=== PATIENT | female | born 1975 | race Caucasian/White ===

== ENCOUNTER 2020-08-23 13:58 | Outpatient (REF) | payer OTHER, SELFPAY ==
[2020-08-23 14:35] LABS: MANUAL DIFF FLAG NO
[2020-08-23 14:38] LABS: Basophils Percent Auto 0.3 % (0-2); Eosinophils Absolute Auto 0.1 X10*3/uL (0.0-0.4); Eosinophils Percent Auto 1.2 % (0-4); Hemoglobin 13.9 g/dl (12.0-16.0); Imm Gran Abs Auto 0.03 X10*3/uL (0.00-0.03); Imm Gran Pct Auto 0.3 % (0.0-0.4); Lymphocytes Absolute Auto 2.3 X10*3/uL (1.2-4.9); Lymphocytes Percent Auto 24.5 % (20-40); Mean Corpuscular HGB Conc 33.9 g/dl (31.0-35.0); Mean Corpuscular Hemoglobin 29.1 pg (27.0-33.0); Mean Platelet Volume 11.3 fL (9.4-12.3); Monocytes Absolute Auto 0.4 X10*3/uL (0.1-1.2); Monocytes Percent Auto 4.4 % (2-11); Neutrophils Absolute Auto 6.5 X10*3/uL (2.0-8.3); Neutrophils Percent Auto 69.3 % (45-73); Platelet Count 212 X10*3/uL (160-400); Red Blood Count 4.77 X10*6/uL (4.20-5.50); Red Cell Distribution Width 12.4 % (11.0-16.0); White Blood Count 9.4 X10*3/uL (4.8-10.8)
[2020-08-23 14:56] LABS: Alanine Aminotransferase 15 U/L (0-31); Albumin Level 4.7 g/dL (3.5-5.0); Alkaline Phosphatase 121 U/L (39-117); Anion Gap 14 (12-20); Aspartate Amino Transferase 20 U/L (5-31); Bilirubin Total 0.5 mg/dL (0.0-1.0); Blood Urea Nitrogen 13 mg/dL (9-16); C Reactive Protein 0.79 mg/dL (< or = 0.50); Calcium 10.5 mg/dL (8.4-10.2); Carbon Dioxide 29 mmol/L (22-29); Chloride 104 mmol/L (96-108); Estimated Glomerular Filt Rate > 60; Glucose Random 95 mg/dL (60-115); Potassium 4.8 mmol/L (3.3-5.1); Sodium 142 mmol/L (135-145); Total Protein 7.8 g/dL (6.5-8.0)
[2020-08-23 15:17] LABS: Thyroid Stimulating Hormone 1.11 uIU/mL (0.32-4.0)
== END 2020-08-23 13:59 | disposition home or self-care (01) ==
LOC: HO.LAB 13:58
PROVIDERS: PCP Internal Medicine; Visit Provider Internal Medicine
DX: R53.83 Other fatigue (principal); E03.9 Hypothyroidism, unspecified; K21.9 Gastro-esophageal reflux disease without esophagitis
CPT/HCPCS: 36415; 80053; 82306; 84439; 84443; 85025; 86140

== ENCOUNTER → 2020-08-29 15:46 | Outpatient (REF) | payer OTHER, SELFPAY | LOC: HO.SL 15:46 | PROVIDERS: PCP Internal Medicine; Visit Provider Internal Medicine | DX: G47.419 Narcolepsy without cataplexy (principal); R53.83 Other fatigue | CPT/HCPCS: 95806 ==

== ENCOUNTER 2021-07-13 08:51 | Outpatient (REF) | payer OTHER, SELFPAY ==
[2021-07-13 09:12] LABS: MANUAL DIFF FLAG NO
[2021-07-13 10:13] LABS: Basophils Percent Auto 0.5 % (0-2); Eosinophils Absolute Auto 0.1 X10*3/uL (0.0-0.4); Eosinophils Percent Auto 1.1 % (0-4); Hematocrit 41.6 % (37.0-47.0); Hemoglobin 14.4 g/dl (12.0-16.0); Imm Gran Abs Auto 0.03 X10*3/uL (0.00-0.03); Imm Gran Pct Auto 0.4 % (0.0-0.4); Lymphocytes Absolute Auto 1.9 X10*3/uL (1.2-4.9); Lymphocytes Percent Auto 23.5 % (20-40); Mean Corpuscular HGB Conc 34.6 g/dl (31.0-35.0); Mean Corpuscular Hemoglobin 30.3 pg (27.0-33.0); Mean Corpuscular Volume 87.4 fL (80.0-98.0); Mean Platelet Volume 11.5 fL (9.4-12.3); Monocytes Absolute Auto 0.4 X10*3/uL (0.1-1.2); Monocytes Percent Auto 4.7 % (2-11); Neutrophils Absolute Auto 5.6 x10*3/uL (2.0-8.3); Neutrophils Percent Auto 69.8 % (45-73); Platelet Count 222 X10*3/uL (160-400); Red Blood Count 4.76 X10*6/uL (4.20-5.50); Red Cell Distribution Width 12.1 % (11.0-16.0)
[2021-07-13 10:44] LABS: Alanine Aminotransferase 13 U/L (0-31); Albumin Level 4.5 g/dL (3.5-5.0); Alkaline Phosphatase 100 U/L (39-117); Anion Gap 13 (12-20); Aspartate Amino Transferase 15 U/L (5-31); Bilirubin Total 0.6 mg/dL (0.0-1.0); Blood Urea Nitrogen 9 mg/dL (9-16); Calcium 9.8 mg/dL (8.4-10.2); Carbon Dioxide 28 mmol/L (22-29); Chloride 104 mmol/L (96-108); Cholesterol 207 mg/dL; Estimated Glomerular Filt Rate > 60; Glucose Random 90 mg/dL (60-115); HDL Cholesterol 71 mg/dL; LDL Cholesterol Calculated 123 mg/dl; Potassium 4.8 mmol/L (3.3-5.1); Sodium 140 mmol/L (135-145); Total Protein 7.6 g/dL (6.5-8.0); Triglycerides 66 mg/dL
[2021-07-13 11:08] LABS: Free T4 (Free Thyroxine) 1.31 ng/dL (0.71-1.85); Thyroid Stimulating Hormone 1.31 uIU/mL (0.32-4.0)
== END 2021-07-13 08:52 | disposition home or self-care (01) ==
LOC: HO.LAB 08:51
PROVIDERS: PCP Internal Medicine; Visit Provider Internal Medicine
DX: Z00.00 Encounter for general adult medical examination without abnormal findings (principal); E03.9 Hypothyroidism, unspecified
CPT/HCPCS: 36415; 80053; 80061; 84439; 84443; 85025

== ENCOUNTER 2022-10-24 08:15 | Outpatient (AMB) | payer OTHER, SELFPAY ==
--- NOTE | 2022-10-24 09:29 | AM.OFFWIN_ITS ---
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 Patient states that she Dental appointments scheduled but not of the January she has a dental infection pain radiating to jaw. She denies fevers or chills. PFSH Social History Patient Tobacco Use Status: Never used Tobacco Review of Systems Const All systems reviewed & are unremarkable except as noted in HPI and below ENT Reports mouth pain Physical Exam Vital Signs: Last Vital Signs Temp 97.8 F 10/24/22 09:30 Pulse 78 10/24/22 09:30 BP 126/74 10/24/22 09:30 Pulse Ox 98 10/24/22 09:30 BMI result Body Mass Index 30.4 Const General: cooperative, no acute distress and alert HEENT Other: no obvious periapical abscess or gingival abscess. Swelling and tenderness to palpation in the upper right molar region. Assessment & Plan Assessment & Plan (1) Dental infection: Code(s): K04.7 - Periapical abscess without sinus Plan Signs and symptoms consistent with dental infection. Will prescribe Augmentin. Patient has dental appointment scheduled. Discharge instructions, follow up and treatment are discussed with patient in my usual fashion. Alternatives in treatment are also discussed. The patient will return for worsening symptoms or as needed. Advised that any labs/imaging ordered will be followed up on and contact made if further treatment needed. Counseled that patient's condition may require further evaluation and/or treatment. Symptoms of concern for worsening disorder discussed in detail in my customary manner. Patient does verbalize understanding of the plan, there are no apparent barriers to communication. The patient is given the opportunity to ask questions and have them answered to his/her satisfaction Medications: New amoxicillin-pot clavulanate 875-125 mg 1 tab PO BID 20 tabs 0RF 10 days Coding Level of Care Code Est Pt Level 3 (31615) Diagnoses Dental infection K04.7
[2022-10-24 09:30] VITALS: BP 126/74; PULSE 78; TEMP 36.6; O2SAT 98; BMI 30.4
== END 2022-10-24 09:52 | disposition home or self-care (01) ==
PROVIDERS: PCP Internal Medicine; Visit Provider Physician Assistant
DX: K04.7 Periapical abscess without sinus (principal)
CPT/HCPCS: 99213

== ENCOUNTER 2023-06-28 08:21 | Outpatient (REF) | payer OTHER, SELFPAY ==
[2023-06-28 08:45] LABS: MANUAL DIFF FLAG NO
[2023-06-28 09:57] LABS: Basophils Percent Auto 0.5 % (0-2); Eosinophils Absolute Auto 1.4 X10*3/uL (0.0-0.4); Eosinophils Percent Auto 17.2 % (0-4); Hematocrit 40.8 % (37.0-47.0); Hemoglobin 14.1 g/dl (12.0-16.0); Imm Gran Abs Auto 0.01 X10*3/uL (0.00-0.03); Imm Gran Pct Auto 0.1 % (0.0-0.4); Lymphocytes Absolute Auto 1.8 X10*3/uL (1.2-4.9); Lymphocytes Percent Auto 22.5 % (20-40); Mean Corpuscular HGB Conc 34.6 g/dl (31.0-35.0); Mean Corpuscular Hemoglobin 30.1 pg (27.0-33.0); Mean Corpuscular Volume 87.2 fL (80.0-98.0); Mean Platelet Volume 11.7 fL (9.4-12.3); Monocytes Absolute Auto 0.4 X10*3/uL (0.1-1.2); Neutrophils Absolute Auto 4.5 x10*3/uL (2.0-8.3); Neutrophils Percent Auto 54.7 % (45-73); Platelet Count 182 X10*3/uL (160-400); Red Blood Count 4.68 X10*6/uL (4.20-5.50); Red Cell Distribution Width 12.6 % (11.0-16.0); White Blood Count 8.2 X10*3/uL (4.8-10.8)
[2023-06-28 10:46] LABS: Alanine Aminotransferase 17 U/L (0-31); Albumin Level 4.4 g/dL (3.5-5.0); Alkaline Phosphatase 130 U/L (39-117); Anion Gap 15 (12-20); Aspartate Amino Transferase 19 U/L (5-31); Bilirubin Total 0.6 mg/dL (0.0-1.0); Blood Urea Nitrogen 12 mg/dL (9-16); Calcium 9.9 mg/dL (8.4-10.2); Carbon Dioxide 26 mmol/L (22-29); Chloride 106 mmol/L (96-108); Cholesterol 174 mg/dL (<200); Estimated Glomerular Filt Rate > 60; Glucose Fasting 88 mg/dL (60-99); HDL Cholesterol 65 mg/dL (>40); LDL Cholesterol Calculated 98 mg/dL (<100); Magnesium 2.3 mg/dL (1.6-2.6); Potassium 4.2 mmol/L (3.3-5.1); Sodium 143 mmol/L (135-145); Total Protein 7.6 g/dL (6.5-8.0); Triglycerides 59 mg/dL (<150)
[2023-06-28 11:02] LABS: Free T4 (Free Thyroxine) 1.07 ng/dL (0.71-1.85); Thyroid Stimulating Hormone 0.46 uIU/mL (0.32-4.0)
== END 2023-06-28 08:22 | disposition home or self-care (01) ==
LOC: HO.LAB 08:21
PROVIDERS: PCP Internal Medicine; Visit Provider Internal Medicine
DX: I10 Essential (primary) hypertension (principal); E03.9 Hypothyroidism, unspecified; R00.2 Palpitations; E78.00 Pure hypercholesterolemia, unspecified
CPT/HCPCS: 36415; 80053; 80061; 83735; 84439; 84443; 85025

== ENCOUNTER 2023-07-29 08:15 | Outpatient (AMB) | payer OTHER, SELFPAY ==
[2023-07-29 08:35] VITALS: BP 140/90; PULSE 85; TEMP 36.2; O2SAT 99; BMI 31.3
--- NOTE | 2023-07-29 08:35 | AM.OFFWIN_ITS ---
Intake Vital Signs 07/29/23 08:35 Height 5 ft 6 in Weight 194 lb BMI 31.3 BP 140/90 H Blood Pressure Location Lt brachial Position Sitting Pulse 85 Pulse Source Pulse Oximeter Temp 97.2 F Temp Source Temporal Artery Scan Pulse Oximetry (%) 99 Oxygen Delivery Method Room Air Intake Visit Reasons: EP sinus pressure, cough, ears Intake Note: pt is here today sinus pressure cough ears started 1 weeks ago Patient Tobacco Use Status: Never used Tobacco Allergies No Known Allergies [NKA] Allergy (Mild, Verified 07/29/23 08:43) NOT APPLICABLE Do you need a note to return to daycare/school/sports/work: No HPI HPI Comments History of Present Illness Details Patient is a 47-year-old female complaining of 10 days of worsening sinus pressure, cough that is sometimes dry and sometimes she does produce sputum. She states her ears are also blocked, the right is worse than the left. She denies any fevers, nausea, vomiting, diarrhea, shortness of breath or trouble breathing. She states she did try taking Mucinex 4 days ago and that seems to be helping a little bit. She states she does not take an allergy pill daily. Patient denies any history of diabetes. [facility] Social History Patient Tobacco Use Status: Never used Tobacco Review of Systems Const All systems reviewed & are unremarkable except as noted in HPI and below Physical Exam Vital Signs: Last Vital Signs Temp 97.2 F 07/29/23 08:35 Pulse 85 07/29/23 08:35 BP 140/90 H 07/29/23 08:35 Pulse Ox 99 07/29/23 08:35 Oxygen Delivery Method Room Air 07/29/23 08:35 BMI result Body Mass Index 31.3 Const General: cooperative, healthy appearing, comfortable and no acute distress Orientation/consciousness: patient oriented x3 Limitations: no limitations HEENT Head: Yes normal to inspection Ears: external ears normal, Abnormal EAC present erythema, edema, EAC tenderness and other (dry skin) and unable to visualize TM bilaterally General nose exam: Normal external nose present, Normal nares present and No nasal discharge present Face and sinus: Yes normal facial exam and Yes sinuses nontender Mouth: Normal oral and palatal mucosa present and moist mucous membranes Throat: Yes tonsils normal, Yes uvula midline and Yes posterior oropharynx abnormal (Erythematous) Eyes General: appearance normal, both eyes and all related structures Neck Neck: Yes normal visual inspection Resp Effort & Inspection: normal respiratory effort, able to speak in complete sentences, Actively coughing, no respiratory distress, not tachypneic, no tripod positioning and no use of accessory muscles Auscultation: clear to auscultation bilaterally Cardio Rate: regular rate Rhythm: regular rhythm Heart sounds: normal S1 and S2 Skin General skin exam: no rashes or lesions noted Neuro General: patient oriented x3 Extrem General: Yes normal to inspection and Yes no clubbing, cyanosis or edema Assessment & Plan Assessment & Plan (1) Otitis externa: Code(s): H60.90 - Unspecified otitis externa, unspecified ear Qualifiers: Otitis externa type: swimmer's ear Chronicity: acute Laterality: bilateral Qualified Code(s): H60.333 - Swimmer's ear, bilateral Plan: Send prescription for polymyxin B eardrops (2) Sinusitis: Code(s): J32.9 - Chronic sinusitis, unspecified Qualifiers: Sinusitis location: maxillary Chronicity: acute Recurrence: non-recurrent Qualified Code(s): J01.00 - Acute maxillary sinusitis, unspecified Plan: Augmentin x5 days as likely bacterial because this is day 10 of her symptoms. Advised to also add a daily allergy pill. Plan see above Medications: New sakkbbld-ftatftgzf-YL 3.5-10,000-1 mg/mL-unit/mL-% 4 drps otic (ears) Q6H 10 days 10 mL 0RF amoxicillin-pot clavulanate 875-125 mg 1 tab PO Q12H 10 tabs 0RF Coding Level of Care Code Est Pt Level 3 (41563) Diagnoses Acute swimmer's ear of both sides H60.333 Otitis externa type: swimmer's ear Chronicity: acute Laterality: bilateral Acute non-recurrent maxillary sinusitis J01.00 Sinusitis location: maxillary Chronicity: acute Recurrence: non-recurrent
== END 2023-07-29 09:14 | disposition home or self-care (01) ==
PROVIDERS: PCP Internal Medicine; Visit Provider Physician Assistant
DX: H60.333 Swimmer's ear, bilateral (principal); J01.00 Acute maxillary sinusitis, unspecified
CPT/HCPCS: 99213

== ENCOUNTER 2023-12-23 08:12 | Outpatient (AMB) | payer OTHER, SELFPAY ==
[2023-12-23 08:24] VITALS: BP 132/90; PULSE 74; TEMP 36.6; O2SAT 98; BMI 31.3
--- NOTE | 2023-12-23 08:24 | MHC.OFFWIV ---
Intake Vital Signs 12/23/23 08:24 Height 5 ft 6 in Weight 194 lb BMI 31.3 BP 132/90 H Blood Pressure Location Rt brachial Position Sitting Pulse 74 Pulse Source Pulse Oximeter Temp 97.8 F Temp Source Oral Pulse Oximetry (%) 98 Intake Visit Reasons: EP fall, bruised/cut on lt leg Intake Note: pt is here for fall on front steps in front of house, cut on leg. happened 3 weekeneds ago Patient Tobacco Use Status: Never used Tobacco Allergies No Known Allergies [NKA] Allergy (Mild, Verified 12/23/23 08:25) NOT APPLICABLE Do you need a note to return to daycare/school/sports/work: Yes HPI HPI Comments History of Present Illness Details Patient is a 48-year-old female complaining of a cut on the front of her left leg. She tells me she fell going down her front cement steps a couple of weeks ago and it does not seem to be healing well. She tells me that it has become painful and red and warm and she is worried that it is infected. She has not been applying anything to it to make it better. She tells me it does not drain any liquid. [facility] Social History Patient Tobacco Use Status: Never used Tobacco Review of Systems Const All systems reviewed & are unremarkable except as noted in HPI and below Physical Exam Vital Signs: Last Vital Signs Temp 97.8 F 12/23/23 08:24 Pulse 74 12/23/23 08:24 BP 132/90 H 12/23/23 08:24 Pulse Ox 98 12/23/23 08:24 BMI result Body Mass Index 31.3 Const General: cooperative, healthy appearing, comfortable, no acute distress and well developed Orientation/consciousness: patient oriented x3 Limitations: no limitations HEENT Head: Yes normal to inspection Neck Neck: Yes normal visual inspection and Yes supple Neuro General: patient oriented x3 Extrem Elbow/forearm/wrist images: 1. 2cm maroon scab with surrounding erythema and warmth, ttp Assessment & Plan Assessment & Plan (1) Cellulitis: Code(s): L03.90 - Cellulitis, unspecified Qualifiers: Site of cellulitis: extremity Site of cellulitis of extremity: lower extremity Laterality: left Qualified Code(s): L03.116 - Cellulitis of left lower limb Plan: Sent antibiotic to pharmacy, recommended applying Aquaphor twice daily until it is healed. Plan See above Medications: New cefuroxime axetil 500 mg PO Q12H 10 tabs 0RF Coding Level of Care Code New Pt Level 3 (38236) Diagnoses Cellulitis of left lower extremity L03.116 Site of cellulitis: extremity Site of cellulitis of extremity: lower extremity Laterality: left
== END 2023-12-23 09:09 | disposition home or self-care (01) ==
PROVIDERS: PCP Internal Medicine; Visit Provider Physician Assistant
DX: L03.116 Cellulitis of left lower limb (principal)

== ENCOUNTER → 2023-12-23 08:12 | Outpatient (BNVA) | payer OTHER, SELFPAY | PROVIDERS: PCP Internal Medicine; Visit Provider Physician Assistant ==

== ENCOUNTER 2024-03-30 11:17 | Outpatient (REF) | payer OTHER, SELFPAY ==
--- OUTSIDE RECORDS SUMMARY | 2024-03-30 14:08 | XMS_ITS | Clinical Summary ---
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 Name Role Phone Robert Cooper MD Primary Care Provider [phone] Surgical History Surgery Date Site/Laterality Comments SECTION 2007, 2010 PROCEDURE: HISTORICAL DELIVERY Medical History Medical History Date Comments Hypothyroid DX:Hypothyroid Family History Medical History Relation Name Comments Asthma Brother Lung cancer Maternal Grandmother smoker 70 Breast cancer Mother age 62 Stroke Mother afib still work ing Alcohol/Drug Paternal Grandfather Allergies Paternal Grandfather Asthma Sister Colon cancer Neg Hx Ovarian cancer Neg Hx Relation Name Status Comments Brother Maternal Grandmother Mother Paternal Grandfather Sister Social History Tobacco Use Types Packs/Day Years Used Date Smoking Tobacco: Never Smokeless Tobacco: Never Alcohol Use Standard Drinks/Week Comments Yes 0 (1 standard drink = 0.6 oz pur e alcohol) Comments Unknown Sex and Gender Information Value Date Recorded Sex Assigned at Not on file Legal Sex Female 10:02 PM EST Gender Identity Not on file Sexual Orientation Not on file Obstetrics History Last Filed Vital Signs Vital Sign Reading Time Taken Comments Blood Pressure 122/84 10/09/2021 9:13 AM EDT Pulse 89 10/09/2021 9:13 AM EDT Temperature - - Respiratory Rate - - Oxygen Saturation - - Inhaled Oxygen Concentration - - Weight 87.1 kg (192 lb) 10/09/2021 9:13 AM EDT Height 167.6 cm (5' 6 ) 10/09/2021 9:13 AM EDT Body Mass Index 30.99 10/09/2021 9:13 AM EDT Plan of Treatment Upcoming Encounters Date Type Department Care Team ([facility] st Contact Info) Description 11/16/2024 4:00 PM EDT Appointment Radiology Department [address] [place] [address] Health Maintenance Due Date Last Done Comments DTaP,Tdap,and Td Vaccines (1 - Tdap) 11/03/1982 Hepatitis B Vaccines (1 of 3 - 19+ 3-dose series) 11/03/1994 Cholesterol Screening (Lipid Panel) 01/27/2022 Colorectal Cancer Screening: Colonoscopy 01/27/2022 Depression Screening 01/27/2022 HIV Screening 01/27/2022 Hepatitis C Screening 01/27/2022 Hypertension/CHF/CAD Annual BMP Blood Test 01/27/2022 Social Influencers of Health Screening 01/27/2022 COVID-19 Vaccine ( season) 2023 Influenza Vaccine (#1) 2023 Cervical Cancer Screening: Pap Smear 04/11/2024 04/11/2021 Breast Cancer Screening 11/03/2025 11/04/19 24, 2023, 10/29/2022, Additional history exists HIB Vaccines Aged Out No longer eligi ble based on patient's age to complete this topic HPV Vaccines Aged Out No longer eligi ble based on patient's age to complete this topic Hepatitis A Vaccines Aged Out No long er eligible based on patient's age to complete this topic IPV Vaccines Aged Out No longer eligi ble based on patient's age to complete this topic MMR Vaccines Aged Out No longer eligi ble based on patient's age to complete this topic Meningococcal ACWY Vaccine Aged Out N o longer eligible based on patient's age to complete this topic Meningococcal B Vacine Aged Out No lo nger eligible based on patient's age to complete this topic Pneumococcal Vaccine: Pediatrics (0 to 5 Years) and At-Risk Patients (6 to 64 Years) Aged Out No longer eligible based on patient's age to complete this topic RSV Immunization Patients Under 20 months Aged Out No longer eligible based on patient's age to complete this topic Varicella Vaccines Aged Out No longer eligible based on patient's age to complete this topic Procedures Procedure Name Priority Date/Time Associated Diagnosis Comments SCREENING MAMMOGRAPHY BI 2-VIEW BREAST INC CAD Routine 2023 2:08 PM EDT Encounter for gynecological examination (general) (routine) without abnormal findings Encounter for screening mammogram for malignant neoplasm of breast PAP SMEAR Routine 04/11/2021 from Last 3 Months or Most Recently Relevant to Health Maintenance Results * SCREENING MAMMOGRAPHY BI 2-VIEW BREAST INC CAD (2023 2:08 PM EDT) Anatomical Region Laterality Modality Radiographic Maddi ging 10/29/2022 1:38 PM EDT Narrative 2023 3:58 PM EDT This is a summary report. The complete report is available in the patient's medical record. If you cannot access the medical record, please contact the sending organization for a detailed fax or copy. Full field digital screening tomosynthesis mammography, reviewed with CAD and compared to previous mammograms of 09/07/2021 and 10/29/2022. The breasts are composed of fatty and fibroglandular tissue. ??No suspicious mass, architectural distortion or suspicious calcifications are identified. IMPRESSION: : No mammographic evidence of malignancy. BIRADS 1-Negative; N. Breast density: The breasts have scattered areas of fibroglandular density. 5 year breast cancer risk assessment 1.8 % Lifetime breast cancer risk assessment 17.8 % Breast cancer risk category Moderate (15% - 20%) Location: [facility], [address] [place] [address], [id number], [phone] Procedure Note Xochilt Todd MD - 01/12/2024 This is a summary report. The complete report is available in thepatient's medical record. If you cannot access the medical record, pleasecontact the sending organization for a detailed fax or copy. Full field digital screening tomosynthesis mammography, reviewed with CADand compared to previous mammograms of 09/07/2021 and 10/29/2022. Thebreasts are composed of fatty and fibroglandular tissue. No suspiciousmass, architectural distortion or suspicious calcifications areidentified. IMPRESSION: : No mammographic evidence of malignancy. BIRADS 1-Negative; N. Breast density: The breasts have scattered areas of fibroglandulardensity. 5 year breast cancer risk assessment 1.8 % Lifetime breast cancer risk assessment 17.8 % Breast cancer risk category Moderate (15% - 20%) Location: [facility], [address] [place] [address], [id number], [phone] Maggie Gómez CNM IMG XR PROCEDURES Final Result * Pap smear (04/11/2021) 04/11/2021 Narrative HISTORICAL TESTING LAB RESULTING AGENCY - 04/23/2021 2:31 PM EST [id number] THINPREP PAP: NEGATIVE FOR SQUAMOUS INTRAEPITHELIAL LESION AND MALIGNANCY . NOTE: THE PAP TEST IS A SCREENING TEST WITH AN INHERENT FALSE NEGATIVE RATE. AUTOMATED PRESCREENING OF ALL LIQUID BASED SPECIMENS IS PERFORMED BY THE THINPREP IMAGING SYSTEM UNLESS OTHERWISE STATED. KYLE EDMOND(ASCP) (CASE ELECTRONICALLY SIGNED 04 23 2021) RESULT OF APTIMA HIGH RISK HPV ASSAY: HIGH RISK HPV: ??NEGATIVE (SEROTYPES 16,18,31,33,35,39,45,51,52,56,58,59,66,68) COMPLETED ON 2021-04-13 ADEQUACY: SATISFACTORY ENDOCERVICAL/TRANSFORMATION ZONE COMPONENT PRESENT. SOURCE: THINPREP PAP HPV ANY DX: ??REFLEX 16 AND 18, CERVICAL, IMAGED CLINICAL INFORMATION: HPV ANY DIAGNOSIS. PAP HX NEGATIVE, [Z12.4, Z01.419]. Maggie Góemz CNM LAB CYTOLOGY ORDERABLES Final R esult HISTORICAL TESTING LAB RESULTING AGENCY from Last 3 Months or Most Recently Relevant to Health Maintenance Care Teams Milking System Installer Relationship Specialty Start Date End Date Robert Cooper MD [address] [place] [address] Dr Jericho [place] PCP - General Internal Medicine 09/14/15
[2024-03-30 14:11] LABS: Influenza A PCR POSITIVE (Negative); Influenza B PCR NEGATIVE (Negative); Resp Syncy Virus RNA Qual PCR NEGATIVE (Negative); SARS COV2 PCR INHOUSE NEGATIVE (Negative)
== END 2024-03-30 11:18 | disposition home or self-care (01) ==
LOC: HO.LNP 11:17
PROVIDERS: PCP Internal Medicine; Visit Provider Physician Assistant
DX: J06.9 Acute upper respiratory infection, unspecified (principal)
CPT/HCPCS: 0241U

== ENCOUNTER 2024-03-30 11:17 | Outpatient (AMB) | payer OTHER, SELFPAY ==
[2024-03-30 11:37] VITALS: BP 118/80; PULSE 94; TEMP 37.7; O2SAT 96
--- NOTE | 2024-03-30 11:37 | MHC.OFFWIV ---
Intake Vital Signs 03/30/24 11:37 Weight 197 lb BP 118/80 Blood Pressure Location Rt brachial Position Sitting Pulse 94 Pulse Source Pulse Oximeter Temp 99.8 F Temp Source Oral Pulse Oximetry (%) 96 Oxygen Delivery Method Room Air Intake Visit Reasons: EP-cough, fever, sob, chest mucus Intake Note: Patient here for cough,fevers, SOB and chest congestion that has been present for a couple of days. Patient Tobacco Use Status: Never used Tobacco Allergies No Known Allergies [NKA] Allergy (Mild, Verified 03/30/24 11:44) NOT APPLICABLE Do you need a note to return to daycare/school/sports/work: Yes HPI HPI Comments History of Present Illness Details This is a 48-year-old female with no stated past medical history presenting for evaluation of fever, cough and sore throat that she has had since . Patient has been taking Tylenol and Mucinex without relief of her discomfort. Patient denies having any chest pain, shortness of breath, ear pain or sinus pressure. Patient states that her children have also had similar symptoms but are now feeling better. [facility] Social History Patient Tobacco Use Status: Never used Tobacco Review of Systems Const All systems reviewed & are unremarkable except as noted in HPI and below Denies chills, Reports fatigue, Reports fever(s), Reports lethargy and Reports weakness Eyes Reports no additional complaints ENT Denies otalgia, Denies facial pain, Denies sinus pain, Denies sinus pressure and Reports sore throat Card Reports no additional complaints, Denies chest pain and Denies dyspnea Resp Reports no additional complaints, Reports cough, Denies hemoptysis and Denies dyspnea GI Reports no additional complaints Reports no additional complaints Musc Reports no additional complaints Skin/Breast Reports system reviewed and no additional complaints, except as documented Neuro Reports weakness Psych Reports no additional complaints Endo Reports no additional complaints and Reports fatigue Emeka/Lymph Reports no additional complaints Physical Exam Vital Signs: Last Vital Signs Temp 99.8 F 03/30/24 11:37 Pulse 94 03/30/24 11:37 BP 118/80 03/30/24 11:37 Pulse Ox 96 03/30/24 11:37 Oxygen Delivery Method Room Air 03/30/24 11:37 Const General: cooperative, healthy appearing, comfortable, no acute distress, well developed, alert, awake, Physically active and tired appearing; No ill appearing Nutritional Appearance: average body habitus Orientation/consciousness: patient oriented x3 Limitations: no limitations HEENT Head: Yes normal to inspection and Yes normocephalic Ears: hearing grossly normal bilaterally, external ears normal, TM's normal bilaterally and EAC's normal General nose exam: Normal external nose present and Normal nares present Face and sinus: Yes normal facial exam and Yes sinuses nontender Mouth: Normal oral and palatal mucosa present, oropharynx normal and moist mucous membranes Throat: Yes posterior oropharynx normal and No postnasal drainage Eyes General: appearance normal, both eyes and all related structures Neck Lymphatic: no lymphadenopathy noted Resp Effort & Inspection: normal respiratory effort, abnormal respiratory pattern, no audible wheezes, Actively coughing, not tachypneic and no tripod positioning Auscultation: wheezes expiratory wheezes and lower bilaterally Cardio Rate: regular rate Rhythm: regular rhythm Neuro General: patient oriented x3 Psych Appearance: grossly normal Mental Status: mental status grossly normal Insight: Good insight present (Psych) Judgement: Good judgement present (Psych) Assessment & Plan Assessment & Plan (1) Acute upper respiratory infection: Comment: Patient is afebrile and is not tachypneic. Imaging is deferred at this time. SARS panel is obtained and results are pending. Code(s): J06.9 - Acute upper respiratory infection, unspecified Plan: Tylenol or ibuprofen as needed for myalgias and pharyngitis. Mucinex and increase clear fluids daily. Orders: Orders SARS-CoV2/FLU/RSV Today J06.9 - Acute upper respiratory infection, unspecified Coding Level of Care Code Est Pt Level 3 (38261) Diagnoses Acute upper respiratory infection J06.9 Time Spent (min) 20
== END 2024-03-30 12:04 | disposition home or self-care (01) ==
PROVIDERS: PCP Internal Medicine; Visit Provider Physician Assistant
DX: J06.9 Acute upper respiratory infection, unspecified (principal)

== ENCOUNTER 2024-05-26 08:03 | Outpatient (AMB) | payer OTHER, SELFPAY ==
--- NOTE | 2024-05-26 08:06 | A.OFFVIS_ITS ---
Vital Signs 05/26/24 08:13 Height 5 ft 6 in Weight 195 lb BMI 31.5 BP 134/78 Blood Pressure Location Rt brachial Position Sitting Pulse 88 Pulse Source Pulse Oximeter Pulse Oximetry (%) 98 Oxygen Delivery Method Room Air Intake Visit Reasons: Colonoscopy Screening Intake Note: NEW PATIENT for initial colo screening. Chief Complaint; Pt denies any GI concerns at this time. No pertinent FMHx. 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 female with past medical history of hypothyroidism, hypertension is here today for pre colonoscopy screening.? Patient was sent to us by her PCP.? This is her first colonoscopy screening.? Patient denies any gastrointestinal symptoms in the past or at present.? Denies any personal or family history of gastrointestinal disease, colon polyps, or CRC.? Patient never went under anesthesia before.? Negative for history of sleep apnea.? Denies any history of cardiac, renal, pulmonary, or hepatic disease.?? No history of infectious? diseases like hepatitis A, B, C, HIV or tuberculosis.? Patient is not on any anticoagulation PFSH Medical History (Updated 05/26/24 @ 08:06 by MATT Reza) HTN (hypertension) Hypothyroid Surgical History (Updated 05/26/24 @ 08:09 by MATT Reza) H/O section Social History Alcohol intake: current Comment: A couple / week Patient Tobacco Use Status: Never used Tobacco Review of Systems Const Denies weight gain and Denies weight loss ENT Reports no additional complaints, Denies dysphagia and Denies odynophagia Card Reports no additional complaints Resp Reports no additional complaints GI Denies abdominal pain, Denies belching, Denies melena, Denies bloating, Denies change in bowel habits, Denies dysphagia, Denies excessive flatus, Denies dyspepsia, Denies heartburn, Denies diarrhea, Denies loose stools, Denies nausea, Denies odynophagia and Denies vomiting Musc Reports no additional complaints Neuro Reports no additional complaints Psych Reports no additional complaints Endo Reports no additional complaints Physical Exam Const General: healthy appearing, no acute distress and well developed Nutritional Appearance: well nourished Orientation/consciousness: patient oriented x3 Resp Effort & Inspection: normal respiratory effort, able to speak in complete sentences, no tracheal deviation and symmetric chest movement Auscultation: clear to auscultation bilaterally Cardio Rate: regular rate GI Inspection: Yes normal to inspection and No distended Palpation (GI): Soft to palpation, not firm, nontender and No hepatosplenomegaly present Auscultation: normal bowel sounds General: Yes no CVA tenderness Back/Spine/Pelvis Back: no CVA tenderness Skin General skin exam: elasticity normal, turgor normal and dry skin Neuro General: patient oriented x3 Psych Appearance: grossly normal Mental Status: mental status grossly normal Assessment & Plan Assessment & Plan (1) Screen for colon cancer: Code(s): Z12.11 - Encounter for screening for malignant neoplasm of colon Plan Patient denies any GI, cardiac or respiratory symptoms.? Denies any issues with anesthesia in the past.? Denies any history of sleep apnea.? No history infectious diseases in the past or present.? Not on any anticoagulation therapy.? No family or personal history of colon cancer or polyps.? Patient denies melena, hematochezia, unintentional weight loss or ribbon like stools.? Discussed at length the pre-procedure,? prep, diet & medications as well as what to expect prior, during and after the procedure.?? Stressed the importance of good bowel prep.? Recommended the use of Vaseline or Calmoseptine OTC & baby wipes with bowel movements to promote comfort.? ?Patient verbalizes understanding and agrees to plan of care.? She was given the opportunity to ask questions and all questions answered.? We will see her after the procedure.? Medications: New polyethylene glycol 3350 (Miralax) As directed by gastroenterology department at [facility] 238 grams PO ONCE 238 grams 0RF Z12.11 - Encounter for screening for malignant neoplasm of colon bisacodyl (Dulcolax (bisacodyl)) take 4 tabs at noon the day before your colonoscopy 20 mg (4 x 5 mg) PO ONCE 1 day 4 tabs 0RF Z12.11 - Encounter for screening for malignant neoplasm of colon Coding Level of Care Code New Pt Level 3 (60255) Diagnoses Screen for colon cancer Z12.11 Time Spent (min) 40 Comment 30 minutes spent with patient and additional 10 minutes spent reviewing her records
--- OUTSIDE RECORDS SUMMARY | 2024-05-26 08:08 | XMS_ITS | Data Portability ---
Author Organization JUAN CARLOS [facility], [address] Address [address] [place] [address] Assessment No assessment recorded. Plan of Treatment Reminders Order Date Submit Date Provider Last Modified By Organization Details Last Modified Time Details Appointments None recorded. Lab SARS CoV 2 (COVID-19) Ag, QL, IA, upper respiratory specimen 2022 023 [email or web address] [address], [address] [place], [address], 18:01:26 Referral None recorded. Procedures None recorded. Surgeries None recorded. Imaging None recorded. Medication Orders amoxicillin 875 mg-potassiu m clavulanate 125 mg tablet 2022 023 [email or web address] [id number], [address] [place], [address], 15:49:06 Patient TargetsNo targets recorded. Patient Instructions Encounter Date Encounter Id Patient Instructions Last Modified By Organization Details Last Modified Time 01/22/2023 [id number] ear infection (otitis media): care instructions [email or web address] Not available 01/22/2023 18:01:25 Reason for Referral None Reported. Results Created Date Observation Date Name Description Value Unit Range Abnormal Flag Note LastModifiedBy Organization Detail LastModifiedTime 01/23/20 23 01/22/2023 SARS CoV 2 (COVI D-19) Ag, QL, IA, upper respi rator y speci men Unknown Analyte negati ve Not Available [email or web address] [place], [address], 01/22/2023 17:35:10 01/23/20 23 01/22/2023 SARS CoV 2 (COVI D-19) Ag, QL, IA, upper respi rator y speci men Unknown Analyte yes Not Available [email or web address] [place], [address], 01/22/2023 17:35:10 Result Notes None recorded. Problems Name Problem SNOMED Code Status Onset Date Resolution Date Notes Provider Name and Address Organization Details Recorded Time Hypertensive disorder 14073699 Active JUAN CARLOS Hanna [facility] 17:33:22 Hypothyroidism 07342238 Active JUAN CARLOS Hanna [facility] 17:33:35 Problem Notes None recorded. Medical Equipment None Reported. Allergies No known drug allergies Medications Name Sig Start Date Stop Date Status Note LastModified by Organization Details LastModified Time amlodipine 2.5 mg tablet TAKE 1 TABLET BY MOUTH EVERY DAY active Not Available Not Available No t Available levothyroxin e 88 mcg tablet TAKE 1 TABLET BY MOUTH DAILY 6 DAYS PER WEEK AND TAKE 1.5 TABLETS BY MOUTH DAILY 1 DAY PER WEEK. active Not Available Not Available No t Available amoxicillin 875 mg-potassium clavulanate 125 mg tablet Take 1 tablet every 12 hours by oral route for 10 days. 2022 active Not Available Not Available Not Avai lable Flowflex COVID-19 Antigen Home Test kit 01/22 completed Not Available Not Available Not Available Vitals Date Recorded Body height Body mass index (BMI) Body weight Body temperature Respiratory rate Oxygen saturation Oxygen saturation in Arterial blood by Pulse oximetry Heart rate Systolic blood pressure Diastolic blood pressure Provider Name and Address Organization Details Last Updated DateTime 3 167.64 cm 30.7 kg/m2 70752.5 5 g 98.5 [degF] 16 /min 98 % 98 % 92 /min 130 mm[Hg] 87 mm[Hg] Noemy Paulino [facility] 17:37:16 Social History Question Answer Notes LastModified by Organizat ion Details LastModified Time Tobacco Smoking Status Never Smoker Noemy fagan PA Lora [facility] 01/22/2023 17:34:19 What Is Your Level Of Alcohol Consumption? Occasional [email or web address] Information not available 01/22/2023 Have You Had A Flu Shot This Season? No [email or web address] Information not available 01/22/2023 What Was The Date Of Your Most Recent Tobacco Screening? 01/22/2023 [email or web address] Information not available 01/22/2023 Do You Use Any Illicit Or Recreational Drugs? No Information not available 01/22/2023 Have You Recently Traveled Abroad? No [email or web address] Information not available 01/22/2023 Do You Or Have You Ever Used Any Other Forms Of Tobacco Or Nicotine? No Information not available 01/22/2023 Sex: Unknown Functional Status None recorded. Mental Status None recorded. Family History Relationship Description Onset Age of this Age Resolved Age Notes LastModified by Organization Details LastModified Time Mother Malignant tumor of breast Not available 2022 17:33:58 Medical History No medical history recorded. Gynecological History Statement/Question Response Date of LMP 12/21/2022 Is there any chance of ? No LMP Approximate Obstetrics History GPAL:G 0 P 0 0 0 0 Immunizations Vaccine Type Date Status Note Provider Nam e and Address Organization Details Recorded Time COVID-19, mRNA, LNP-S, PF, 30 mcg/0.3 mL dose 04/05/2020 completed Noemy Gentile null, PA - [facility] 01/22/2023 17:32:41 COVID-19, mRNA, LNP-S, PF, 30 mcg/0.3 mL dose 04/28/2020 completed Noemy Gentile null, PA - [facility] 01/22/2023 17:32:41 COVID-19, mRNA, LNP-S, PF, 30 mcg/0.3 mL dose 02/15/2021 completed Noemy Gentile null, PA - [facility] 01/22/2023 17:32:41 Influenza, split virus, quadrivalent, PF 12/29/2019 completed Noemy Gentile null, PA - [facility] 01/22/2023 17:32:41 Past Encounters Encounter ID Performer Location Encounter Start Date Encounter Closed Date Diagnosis/Indication Diagnosis SNOMED-CT Code Diagnosis ICD10 Code Diagnosis Note [id number] [address] [facility] [place] [address] 07/06/2018 15:23:20 07/06/2018 15:56:35 [id number] [address] [facility] [place] [address] 10/17/2017 09:03:49 10/17/2017 09:40:04 [id number] [address] [facility] [place] [address] 06/08/2020 13:37:12 06/08/2020 14:37:45 [id number] [address] [place] [address] [place] [address] 02/25/2019 17:47:20 02/25/2019 18:52:31 [id number] [address] [facility] [place] [address] 06/04/2016 15:08:13 06/04/2016 16:05:27 [id number] [address] [place] [address] [place] [address] 10/05/2018 15:35:06 10/05/2018 16:06:23 [id number] [address] [facility] [place] [address] 03/11/2019 15:46:03 03/11/2019 16:26:07 [id number] [address] [facility] [place] [address] 11/03/2015 09:31:46 11/03/2015 10:49:03 [id number] [place]izzie [place] [address] [place] [address] 01/22/2023 17:06:30 01/22/2023 18:03:16 Acute right otitis media 375104343 H66.91 An ear infection may start with a cold and affect the middle ear (otitis media). It can hurt a lot. Most ear infections clear up on their own in a couple of days and do not need antibiotic s. Also, antibiotic s do not work against viruses, which may be the cause of your infection. Regular doses of pain relievers are the best way to reduce your fever and help you feel better.Fol low-up care is a parsons part of your treatment and safety. Be sure to make and go to all appointmen ts, and call your doctor if you are having problems. It's also a good idea to know your test results and keep a list of the medicines you take.How can you care for yourself at home?Take pain medicines exactly as directed.I f the doctor gave you a prescripti on medicine for pain, take it as prescribed .If you are not taking a prescripti on pain medicine, take an over-the-c ounter medicine, such as acetaminop hen (Tylenol), ibuprofen (Advil, Motrin), or naproxen (Aleve). Read and follow all instructio ns on the label.Do not take two or more pain medicines at the same time unless the doctor told you to. Many pain medicines have acetaminop hen, which is Tylenol. Too much acetaminop hen (Tylenol) can be harmful.Pl an to take a full dose of pain reliever before bedtime. Getting enough sleep will help you get better.Try a warm, moist washcloth on the ear. It may help relieve pain.If your doctor prescribed antibiotic s, take them as directed. Do not stop taking them just because you feel better. You need to take the full course of antibiotic s. Upper resp iratory infection 34261268 J06.9 Health Concerns Section Related Observation LastModified by Organization Detai ls LastModified Time None Recorded Concern Status LastModified by Organization Details LastModified Time None Recorded Advance Directives Directive None Recorded Payers Encounter Date Sequence Insurance Name Policy Number Policy Dorsey Covered Member ID Dorsey Member ID Guarantor Name 10/05/2018 1 [facility] [id number] Taurus Torres [id number] Taurus Lapa 02/25/2019 1 [facility] [id number] Taurus Torres [id number] Taurus Lapa 03/11/2019 1 [facility] [id number] Taurus Torres [id number] Taurus Lapa 06/08/2020 1 [facility] [id number] Taurus M Melissa [id number] Taurus Torres 01/22/[address] [place] [address] [id number] Taurus Pak Melissa [id number] Taurus Torres Notes Date Note Type Note Provider Name and Address Organization Details Recorded Time 01/22/2023 text/html Sinus Complaints UCReported bypatient.Locatio n:pain behind the eyes;sinus pain;facial pain;pain in the cheek;sinus pressure Associated Symptoms:no fever; no difficulty breathing; no nausea or vomiting; no ear fullness; no cough;nasal discharge from nostrils;sore throat;Post nasal drip Quality:worsening Severity:severe Context:no recent sick contacts Risk Factors:no current smoking or tobacco use Presents with Sinus pressure x 2 weeks Lizzie Patricia NP [address] [place], [place] [address], [address], PA - [facility] 02/09/2023 15:52:12 OBGyn Episode No OBEpisode recorded.
--- OUTSIDE RECORDS SUMMARY | 2024-05-26 08:08 | XMS_ITS | Clinical Summary ---
Author Organization [facility] Address [address] [place] [address] Care Team Providers Care Circular Sawyer Helper Name Role Phone Robert Cooper MD Primary Care Provider [phone] Surgical History Surgery Date Site/Laterality Comments SECTION [...] Upcoming Encounters Date Type Department Care Team ([facility] st Contact Info) Description 11/16/2024 4:00 PM EDT Appointment Radiology Department [address] [place] [address] Health Maintenance Due Date Last Done Comments DTaP,Tdap,and Td Vaccines (1 - Tdap) 11/03/1994 Hepatitis B Vaccines (1 of 3 - [...] age to complete this topic Meningococcal B Vaccine Aged Out No l onger eligible based on patient's age to complete [...] risk category Moderate (15% - 20%) Location: [facility], [address] [place] [address], [address], [phone] Procedure Note Xochilt Todd MD - 01/12/2024 [...] risk category Moderate (15% - 20%) Location: [facility], [address] [place], [place] [address], [address], [phone] Maggie Gómez CNM IMG XR PROCEDURES Final Result * Pap smear (04/11/2021) 04/11/2021 Narrative HISTORICAL TESTING LAB RESULTING AGENCY - 04/23/2021 2:31 PM EST [id number] THINPREP PAP: NEGATIVE FOR SQUAMOUS INTRAEPITHELIAL LESION [...] DIAGNOSIS. PAP HX NEGATIVE, [Z12.4, Z01.419]. Maggie Gómez CNM LAB CYTOLOGY ORDERABLES Final R esult HISTORICAL TESTING LAB RESULTING AGENCY from Last 3 Months or Most Recently Relevant to Health Maintenance Care Teams Circular Sawyer Helper Relationship Specialty Start Date End Date Robert Cooper MD [address] [place] [address] Dr Jericho [place] PCP - General Internal Medicine 09/14/15
[2024-05-26 08:13] VITALS: BP 134/78; PULSE 88; O2SAT 98; BMI 31.5
== END 2024-05-26 08:36 | disposition home or self-care (01) ==
LOC: HO.HGI 08:04
PROVIDERS: PCP Internal Medicine; Visit Provider Nurse Practitioner Family
DX: Z01.818 Encounter for other preprocedural examination (principal); Z12.11 Encounter for screening for malignant neoplasm of colon
CPT/HCPCS: 99202

== ENCOUNTER → 2024-08-12 06:28 | Day surgery (SDC) | payer OTHER, SELFPAY ==
--- OUTSIDE RECORDS SUMMARY | 2024-07-15 11:18 | XMS_ITS | Encounter Summary ---
Author Organization [facility] Address [address] [place] [address] Care Team Providers Care Tanker Serviceman Name Role Phone Robert Cooper MD Primary Care Provider Unava ilable Reason for Visit * Reason Comments E-prescribe Rx Request Encounter Details Date Type Department Care Team Description 12/08/2017 Refill OBGYN - [place] [address] [place], [place] [id number] Zee Hook MD [address] [place] [address] E-prescribe Rx Request Social History Tobacco Use Types Packs/Day Years Used Date Smoking Tobacco: Never Alcohol Use Standard Drinks/Week Comments Yes 0 (1 standard drink = 0.6 oz pur e alcohol) Sex Assigned at Date Recorded Not on file Job Start Date Occupation Industry Not on file Not on file Not on file documented as of this encounter Miscellaneous Notes * Telephone Encounter - Cristel Morgan - 12/08/2017 10:19 AM EDT WHEN WAS THE PATIENTS LAST ANNUAL COMMISSION AGENT LIVESTOCK EXAM? 11/2016 Does patient have an upcoming appointment? Yes 12/2017 (THE MEDICATION REQUESTED IS ON THE MED LIST ABOVE) Did you check the Pharmacy information above?: NO Indicate how soon the patient needs the script: BY THE END OF THE DAY Patient would like script to be: E-PRESCRIBED/FAXED TO PHARMACY Is the doctor here today?: NO Can the message wait until the doctor returns?: NO Has the patient been told that the prescription will not be filled until the end of the day? NO Payor: [employer] / Plan: [employer] $20 [place] / Product Type: HMO [id number] documented in this encounter Plan of Treatment Not on file documented as of this encounter Visit Diagnoses Not on filedocumented in this encounter Care Teams Tanker Serviceman Relationship Specialty Start Date End Date Robert Cooper MD PCP - General Internal Medicine 09/14/15 documented as of this encounter
[2024-08-10 08:40] VITALS: BMI 31.5
--- NOTE | 2024-08-11 09:28 | P.CONAN_ITS ---
HPI - Anesthesia Eval Consult details Narrative: 48yo F for Colonoscopy [facility] Active Problems Active Problems: All Active Problems Acute upper respiratory infection (Acute) Cellulitis (Acute) Sinusitis (Acute) Otitis externa (Acute) Dental infection (Acute) Past Medical History Medical History HTN (hypertension) Hypothyroid Family History Family History Mother Atrial fibrillation Father No problems noted. Surgical History Surgical History H/O section Social History Social History Housing: Apartment Alcohol intake: current Comment: A couple / week Patient Tobacco Use Status: Never used Tobacco e-Cigarette/Vaping Use: Never Used service: No Current occupational status: employed Cognitive needs: No Hearing needs: No Vision needs: Yes (reading glasses) Meds Allergies Allergy/AdvReac Type Severity Reaction Status Date / Time No Known Allergies (NKA) Allergy Mild NOT Verified 08/16/24 20:20 APPLICABLE Exam Height,Weight and Vital Signs: Height 5 ft 6 in Weight 88.451 kg Assessment and Plan Assessment Anesthesia Assessment: Chart Reviewed
[2024-08-12 06:33] VITALS: BMI 30.9
--- NOTE | 2024-08-12 06:33 | MHC.SHP ---
Pre-Procedural Eval Section A - 24 Hr Update-Section A only Date of Service: 08/12/24 Section B - Complete if H&P > 30 days Chief Complaint: screening Details of Present Illness: HTN Hypothyroidism Present Medications: see Short Stay Collaborative assessment Allergies: Allergies Allergy/AdvReac Type Severity Reaction Status Date / Time No Known Allergies (NKA) Allergy Mild NOT Verified 03/30/24 11:44 APPLICABLE Review of Systems Review of Systems Comment: 10 point ROS negative Exam Surgical H&P Exam: Normal: HEENT, Normal: Heart, Normal: Lungs, Normal: Extremities, Normal: Abdomen, Normal: Skin and Normal: Neurological Plan Diagnosis/Plan: Change I have reviewed the history and physical and performed a pertinent physical examination on my patient. No changes have occurred unless specified. Pt noted to go in and out of stable SVT. Procedure canceled by anesthesiologist and pt referred to ER Time Spent With Patient Time: Total time managing care of this patient today ____ minutes.
[2024-08-12 06:53] VITALS: BP 126/81; PULSE 75; RESP 16; TEMP 36.9; O2SAT 98
[2024-08-12] MEDS: Lactated Ringers 1,000 ML 100 ML IVCONT (07:18)
--- NOTE | 2024-08-12 07:19 | ECG_ITS ---
Test Reason : tachycardia Blood Pressure : */* mmHG Vent. Rate : 114 BPM Atrial Rate : 91 BPM P-R Int : 182 ms QRS Dur : 88 ms QT Int : 354 ms P-R-T Axes : 50 -12 48 degrees QTcB Int : 487 ms Sinus rhythm Aberrantly conducted PACs vs PVCs Minimal voltage criteria for LVH, may be normal variant ( R in aVL ) Abnormal ECG No previous ECGs available Referred By: Nisreen Boyd Electronically Signed By: KATERYNA KAUR
--- NOTE | 2024-08-12 07:35 | PC.NURSE ---
while prepping patient for her procedure. patients heart rate increased to 155 svt. she felt her heart rate increased but denied chest pain, dizziness or sob. color wnl. nondiaphorectic. patient going in and out of svt with nrs- pvs and ?bbb. doc to doc to be given. gave report to charge nurse.
--- NOTE | 2024-08-12 07:43 | HO.ANESPROP2 ---
[facility] Active Problems Active Problems: All Active Problems (Updated 05/26/24 @ 08:06 by Torsten Parkinson [facility]) Acute upper respiratory infection (Acute) Cellulitis (Acute) Sinusitis (Acute) Otitis externa (Acute) Dental infection (Acute) Past Medical History Medical History HTN (hypertension) Hypothyroid Functional capacity: independent ambulation Family History Family history of problems with anesthesia: No Surgical History Surgical History H/O section History of Problems with Anesthesia: No Social History Social History Alcohol intake: current Comment: A couple / week Patient Tobacco Use Status: Never used Tobacco Use of substances other than those prescribed or required for medical reasons: No Are you DNR?: No Advance Directives: No Advance Directives Information Provided: Yes : No Poor oral hygiene: No Meds Allergies Allergy/AdvReac Type Severity Reaction Status Date / Time No Known Allergies (NKA) Allergy Mild NOT Verified 03/30/24 11:44 APPLICABLE Active Medications: Current Medications Lactated Ringer's (Lr) 1,000 mls @ 100 mls/hr IVCONT .Q10H ANN-MARIE Last Admin: 08/12/24 07:18 Dose: 100 mls/hr Home Medications ?Medication ?Instructions ?Recorded ?Confirmed ?Last Taken ?Type amlodipine 2.5 mg tablet 2.5 mg PO DAILY 10/24/22 08/12/24 08/12/24 History Exam Height,Weight and Vital Signs: Height 5 ft 6 in Weight 86.9 kg Last Vital Signs Temp 98.5 F 08/12/24 06:53 Pulse 75 08/12/24 06:53 Resp 16 08/12/24 06:53 BP 126/81 08/12/24 06:53 Pulse Ox 98 08/12/24 06:53 O2 Del Method Room Air 08/12/24 06:53 Airway Mallampati Class: II TM Dist: >3cm Neck ROM: Full Heart: tachycardiv.HR up to 156 with PVCs. without SOB or CP. it happened 3 times preop. I talked to dr. Gonzalez and pt. was sent to ED for further examinations. Assessment and Plan Assessment Anesthesia Assessment: Anesthesia Plan Discussed Final Anesthetic Review Family History of Problems with Anesthesia: No History of Problems with Anesthesia: No ASA Class: II Final Preanesthetic Review: Meds/Allgs Chart Reviewed, Consent Obtained/Reviewed and Anes Risks/Benef Reviewed Anesthetic Plan Anesthetic Plan: MAC: Disposition: Standard PACU
--- NOTE | 2024-08-12 07:59 | PC.NURSE ---
transferred to ed. remains in and out of arrhythmia. asymptomatic other than feeling her increased heart rate around 152. report given to bedside nurse in the ed.
== END ==
LOC: HO.SSS 06:28
PROVIDERS: PCP Internal Medicine; Visit Provider Internal Medicine
DX: Z12.11 Encounter for screening for malignant neoplasm of colon (principal); R00.0 Tachycardia, unspecified; Z53.09 Procedure and treatment not carried out because of other contraindication; I10 Essential (primary) hypertension; E03.9 Hypothyroidism, unspecified
CPT/HCPCS: 93005

== ENCOUNTER 2024-08-12 07:50 | Emergency (ER) | payer OTHER, SELFPAY ==
[2024-08-12 07:53] VITALS: BP 147/84; PULSE 108; RESP 18; O2SAT 100; BMI 30.9
--- NOTE | 2024-08-12 07:55 | ECG_ITS ---
Test Reason : palpitations Blood Pressure : */* mmHG Vent. Rate : 113 BPM Atrial Rate : 89 BPM P-R Int : 146 ms QRS Dur : 82 ms QT Int : 340 ms P-R-T Axes : 48 7 68 degrees QTcB Int : 466 ms Sinus rhythm with frequent , and consecutive Premature ventricular complexes vs PACs/aberrant conduction Abnormal ECG When compared with ECG of 12-Aug-2024 07:23, T wave amplitude has decreased in Anterior leads Referred By: Generic ED Physician Electronically Signed By: KATERYNA KAUR
--- NOTE | 2024-08-12 08:06 | PC.NURSE ---
Pt to ED from endo, planned for colonoscopy today, noted to be in and out of SVT. A/O x 3, denies pain but reports palpitations. Denies SOB. Respirations even and unlabored, placed on 2L NC. Pt placed on monitor, EKG and labs obtained. Pt with #22 in L hand and additional #18 placed in LAC.
[2024-08-12 08:08] LABS: MANUAL DIFF FLAG NO
[2024-08-12 08:09] LABS: Basophils Percent Auto 0.3 % (0-2); Eosinophils Absolute Auto 0.1 X10*3/uL (0.0-0.4); Eosinophils Percent Auto 1.2 % (0-4); Hemoglobin 14.5 g/dl (12.0-16.0); Imm Gran Abs Auto 0.03 X10*3/uL (0.00-0.03); Imm Gran Pct Auto 0.4 % (0.0-0.4); Lymphocytes Absolute Auto 1.8 X10*3/uL (1.2-4.9); Mean Corpuscular HGB Conc 36.3 g/dl (31.0-35.0); Mean Corpuscular Hemoglobin 30.3 pg (27.0-33.0); Mean Corpuscular Volume 83.7 fL (80.0-98.0); Mean Platelet Volume 11.2 fL (9.4-12.3); Monocytes Absolute Auto 0.4 X10*3/uL (0.1-1.2); Monocytes Percent Auto 5.2 % (2-11); Neutrophils Absolute Auto 5.4 x10*3/uL (2.0-8.3); Neutrophils Percent Auto 69.9 % (45-73); Platelet Count 202 X10*3/uL (160-400); Red Blood Count 4.78 X10*6/uL (4.20-5.50); Red Cell Distribution Width 12.5 % (11.0-16.0); White Blood Count 7.7 X10*3/uL (4.8-10.8)
[2024-08-12 08:29] LABS: Alanine Aminotransferase 28 U/L (0-31); Albumin Level 4.8 g/dL (3.5-5.0); Alkaline Phosphatase 123 U/L (39-117); Anion Gap 13 (12-20); Aspartate Amino Transferase 32 U/L (5-31); Bilirubin Total 0.7 mg/dL (0.0-1.0); Blood Urea Nitrogen 8 mg/dL (9-16); Calcium 9.9 mg/dL (8.4-10.2); Carbon Dioxide 26 mmol/L (22-29); Chloride 106 mmol/L (96-108); Estimated Glomerular Filt Rate > 60; Glucose Random 98 mg/dL (60-115); Potassium 3.9 mmol/L (3.3-5.1); Sodium 141 mmol/L (135-145); Total Protein 7.9 g/dL (6.5-8.0)
--- NOTE | 2024-08-12 08:29 | ED.GENADULT ---
HPI - General Adult General Chief complaint: Arrhythmia/Palpitations Stated complaint: SVT Time Seen by Provider: 08/12/24 08:19 Source: patient and old records reviewed Mode of arrival: wheelchair Limitations: no limitations History of Present Illness ED Provider: DR. Mccoy HPI narrative: 48-year-old female history of hypertension on amlodipine, hypothyroidism came to the emergency department with wheelchair from short-stay surgery patient was scheduled to have colonoscopy, patient did the bowel prep last night, before the procedure patient noted to have SVT patient was sent to the ER for further evaluation, patient only feels palpitation when she had those episode of SVT, no chest pain, no lower extremity swelling or tenderness, no recent travel, no history of PE or DVT. 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 Related Data Home Medications ?Medication ?Instructions ?Recorded ?Confirmed amlodipine 2.5 mg tablet 2.5 mg PO DAILY 10/24/22 08/12/24 Previous Rx's ?Medication ?Instructions ?Recorded levothyroxine 88 mcg tablet 88 mcg PO DAILY #90 tabs 07/01/24 metoprolol tartrate 25 mg tablet 25 mg PO DAILY #30 tabs 08/12/24 Allergies Allergy/AdvReac Type Severity Reaction Status Date / Time No Known Allergies (NKA) Allergy Mild NOT Verified 08/12/24 07:54 APPLICABLE Review of Systems Review of Systems: All other systems are reviewed and are negative Constitutional: Reports as per HPI and Reports no additional constitutional complaints Eyes: Reports as per HPI and Reports no additional eye complaints Reports system reviewed and no additional complaints, except as documented Cardiovascular: Reports as per HPI and Reports no additional cardiovascular complaints Respiratory: Reports as per HPI and Reports no additional respiratory complaints Gastrointestinal: Reports as per HPI and Reports no additional gastrointestinal complaints Genitourinary: Reports no additional female genitourinary complaints Musculoskeletal: Reports no additional musculoskeletal complaints Skin/Breast: Reports system reviewed and no additional complaints, except as docu Psychiatric: Reports no additional psychiatric complaints Endocrine: Reports no additional endocrine complaints Hematologic/Lymphatic: Reports no additional hematologic/lymphatic complaints Allergic/Immunologic: Reports no additional allergic/immunologic complaints Reports system reviewed and no additional complaints, except as documented and Reports Abnormal speech present [facility] Past Medical History Medical History HTN (hypertension) Hypothyroid Surgical History H/O section Social History Social History Alcohol intake: current Comment: A couple / week Patient Tobacco Use Status: Never used Tobacco Smoked in Last 30 Days: No Use of substances other than those prescribed or required for medical reasons: No Advance Directives: No Advance Directives Information Provided: Yes Physical Exam ED Vital Signs: Vital Signs - 24 hr 08/12/24 07:53 08/12/24 08:32 08/12/24 09:43 Temperature 99.0 F Pulse Rate 108 H 111 H 66 Respiratory Rate 18 12 Blood Pressure 147/84 H 153/74 H 115/79 Pulse Oximetry 100 99 Oxygen Delivery Method Room Air Nasal Cannula Oxygen Flow Rate 2 BMI result Body Mass Index 30.9 Vital signs have been reviewed and appear to be correct. Blood pressure elevated. Heart rate elevated. Respiratory rate normal. Temperature normal. Oxygen saturation normal. Appearance: Alert. Oriented X3. No acute distress. Head: Normal external exam. Normocephalic. Atraumatic. No [place] signs noted. No raccoon eyes noted Eyes: PERRLA. EOMI. Conjunctiva and sclera normal. Eyelids normal. ENT: TM's Normal. Pharynx normal. Uvula midline. Moist mucous membranes. No trismus noted. No drooling noted. No muffled voice noted. Neck: Normal inspection. Neck supple. FROM. No adenopathy. Thyroid Normal. No meningeal signs. No neck mass noted. CVS: Normal heart rate and rhythm. Heart sound normal. No murmurs noted. Pulses normal throughout. Respiratory: No respiratory distress. Painless inspiration. Breath sounds normal. No wheezes/rales/rhonchi noted. Chest nontender. No accessory muscle usage noted or decreased air movement noted. Abdomen: Soft and nontender. Bowel sounds normal in all 4 quadrants. No distention noted. No organomegaly noted. No visible injury noted. Back: No CVA tenderness. Full range of motion noted. Skin: Skin warm and dry. Normal skin color. Normal skin turgor. No rashes/lesions/lacerations noted. Extremities: No lower extremity edema. Extremities exhibit normal range of motion. Extremities nontender. Neuro: Oriented X 3. Cranial nerve exam: II-XII are grossly intact No motor deficit. No sensory deficit. Reflexes normal. Course Reevaluation(s) Reevaluation #1: patient was given metoprolol 25 mg in the ED, stopped getting intermittent palpitation feeling, repeat EKG shows normal sinus rhythm at 60 beats per minutes. Blood pressure is been stable, patient reported improvement of the subjective feeling of palpitation. Labs are unremarkable, will discontinue amlodipine start metoprolol 25 mg daily and follow-up with Dr. Salazar case discussed with the patient and in agreement. Time: 10:34 Medications Administered Discontinued Medications Generic Name Dose Route Start Last Admin Trade Name Freq PRN Reason Stop Dose Admin Metoprolol Tartrate 25 mg 08/12/24 08:28 08/12/24 08:32 Metoprolol Tartrate 25 Mg Tablet PO 08/12/24 08:29 25 mg ONCE ONE Administration Protocol Medical Decision Making Differential Diagnosis Differential Diagnoses: The differential diagnosis associated with the presentation includes ( Electrolyte derangement, AFib, dysrhythmia, SVT, anxiety, severe anemia , subtherapeutic levothyroxine.) Admission/Observation Consideration of admission/observation: Escalation of care including admission/observation considered Lab Data MDM Lab Attestation statement: I reviewed the patient's lab results. 08/12/24 08:01 08/12/24 08:01 Labs: Lab Results 08/12/24 08/12/24 Range/Units 08:00 08:01 WBC 7.7 (4.8-10.8) X10*3/uL RBC 4.78 (4.20-5.50) X10*6/uL Hgb 14.5 (12.0-16.0) g/dl Hct 40.0 (37.0-47.0) % MCV 83.7 (80.0-98.0) fL MCH 30.3 (27.0-33.0) pg MCHC 36.3 H (31.0-35.0) g/dl RDW 12.5 (11.0-16.0) % Plt Count 202 (160-400) X10*3/uL MPV 11.2 (9.4-12.3) fL Immature Gran % (Auto) 0.4 (0.0-0.4) % Neut % (Auto) 69.9 (45-73) % Lymph % (Auto) 23.0 (20-40) % [place] % (Auto) 5.2 (2-11) % Eos % (Auto) 1.2 (0-4) % Baso % (Auto) 0.3 (0-2) % Lymph # (Auto) 1.8 (1.2-4.9) X10*3/uL [place] # (Auto) 0.4 (0.1-1.2) X10*3/uL Eos # (Auto) 0.1 (0.0-0.4) X10*3/uL Baso # (Auto) 0.0 (0.0-0.2) X10*3/uL Abs Immat Gran (auto) 0.03 (0.00-0.03) X10*3/uL Absolute Neuts (auto) 5.4 (2.0-8.3) x10*3/uL Absolute Nucleated RBC 0.000 (0.0-0.012) X10*3/uL Nucleated RBC % (auto) 0.0 (0.0-0.2) /100WBC Sodium 141 (135-145) mmol/L Potassium 3.9 (3.3-5.1) mmol/L Chloride 106 (96-108) mmol/L Carbon Dioxide 26 (22-29) mmol/L Anion Gap 13 (12-20) BUN 8 L (9-16) mg/dL Creatinine 0.67 (0.5-1.4) mg/dL Estim Creat Clear Calc 114.0 Estimated GFR > 60 Random Glucose 98 (60-115) mg/dL Calcium 9.9 (8.4-10.2) mg/dL Total Bilirubin 0.7 (0.0-1.0) mg/dL AST 32 H (5-31) U/L ALT 28 (0-31) U/L Alkaline Phosphatase 123 H (39-117) U/L Troponin I High Sens < 2.7 (<3.5-17.0) ng/L Total Protein 7.9 (6.5-8.0) g/dL Albumin 4.8 (3.5-5.0) g/dL TSH 1.66 (0.32-4.0) uIU/mL Beta HCG, Quant < 2 mIU/mL Independent Interpretation I performed an independent interpretation of an: EKG ( EKG 1. SVT at 01:56 with PVCs. EKG 2. After was given metoprolol is normal sinus rhythm at 65 beats per minute with minimal LVH. ) Discharge Plan Discharge Clinical Impression: Palpitation, SVT (supraventricular tachycardia) Patient Disposition: Home, Self-Care Instructions: Supraventricular Tachycardia (ED), Heart Palpitations (ED) Additional Instructions: stop taking amlodipine and start a new medicine metoprolol 25 mg daily. make an appointment with Dr. Salazar as discussed. Prescriptions: New metoprolol tartrate 25 mg tablet 25 mg PO DAILY Qty: 30 0RF No Action levothyroxine 88 mcg tablet 88 mcg PO DAILY Qty: 90 3RF amlodipine 2.5 mg tablet 2.5 mg PO DAILY Referrals: Eric Buckner MD [Primary Care Provider, Internal Medicine] Warren Salazar MD [Physician, Cardiology] Print Language: Amharic
[2024-08-12 08:32] VITALS: BP 153/74; PULSE 111
[2024-08-12] MEDS: Metoprolol Tartrate 25 MG TABLET PO (08:32)
[2024-08-12 08:34] LABS: Troponin-I High Sensitivity < 2.7 ng/L (<3.5-17.0)
[2024-08-12 08:36] LABS: HCG Quantitative < 2 mIU/mL
[2024-08-12 09:12] LABS: Thyroid Stimulating Hormone 1.66 uIU/mL (0.32-4.0)
[2024-08-12 09:43] VITALS: BP 115/79; PULSE 66; RESP 12; TEMP 37.2; O2SAT 99
--- NOTE | 2024-08-12 09:57 | ECG_ITS ---
Test Reason : REPEAT Blood Pressure : */* mmHG Vent. Rate : 65 BPM Atrial Rate : 65 BPM P-R Int : 180 ms QRS Dur : 82 ms QT Int : 396 ms P-R-T Axes : 36 -6 20 degrees QTcB Int : 411 ms Normal sinus rhythm Minimal voltage criteria for LVH, may be normal variant ( R in aVL ) Borderline ECG When compared with ECG of 12-Aug-2024 07:51, Premature atrial complexes not present Vent. rate has decreased by 48 bpm Referred By: Jessica Mccoy Electronically Signed By: KATERYNA KAUR
[2024-08-12 11:00] VITALS: BP 132/78; PULSE 71; RESP 16; TEMP 36.6; O2SAT 96
--- NOTE | 2024-08-12 11:39 | P.CONCA_ITS ---
History of Present Illness History of Present Illness Date of Service: 08/12/24 Chief complaint: SVT Narrative: This is a cardiology consultation regarding tachycardia. Patient came for a routine colonoscopy. In that setting, she was found to be having tachycardia. Hence the colonoscopy was not performed and she was sent to the emergency room. The initial EKG, she was tachycardic at 156/Min. Not clear if it is atrial flutter or atrial tachycardia. Difficult to say. After that, it seems that she got metoprolol and she converted to sinus rhythm. She has been maintaining that. Patient herself does not have any clear cardiac symptoms even when she was tachycardic. Couple of years ago she had some palpitations but not bothersome and it seems it was not pursued fully. She has got no other cardiac issues. She feels well overall. Review of Systems 2 Review of Systems: Yes all other systems are reviewed and are negative Constitutional: Constitutional: Reports as per HPI and Reports no additional constitutional complaints Eyes: Eyes: Reports as per HPI and Denies no additional eye complaints ENT: Denies system reviewed and no additional complaints, except as documented and Reports as per HPI Cardiovascular: Cardiovascular: Reports as per HPI, Reports no additional cardiovascular complaints, Denies acrocyanosis, Denies cool extremities, Denies chest pain, Denies leg edema, Denies lightheadedness, Denies palpitations and Denies dyspnea Respiratory: Respiratory: Reports as per HPI, Denies no additional respiratory complaints and Denies dyspnea Gastrointestinal: Gastrointestinal: Reports as per HPI and Denies no additional gastrointestinal complaints Genitourinary: Genitourinary: Reports as per HPI Musculoskeletal: Musculoskeletal: Reports no additional musculoskeletal complaints and Reports as per HPI Integumentary/Breasts: Skin/Breast: Reports system reviewed and no additional complaints, except as docu Neurologic: Reports system reviewed and no additional complaints, except as documented and Reports as per HPI Psychiatric: Psychiatric: Reports no additional psychiatric complaints and Reports as per HPI Endocrine: Endocrine: Reports no additional endocrine complaints, Reports as per HPI and Denies palpitations Hematologic/Lymphatic: Hematologic/Lymphatic: Reports no additional hematologic/lymphatic complaints and Reports as per HPI Allergic/Immunologic: Allergic/Immunologic: Reports no additional allergic/immunologic complaints and Reports as per HPI [facility] Past Medical History Medical History HTN (hypertension) Hypothyroid Family History Family History (Updated 08/12/24 @ 11:43 by Warren Salazar MD) Mother Atrial fibrillation Surgical History Surgical History H/O section Social History Social History Alcohol intake: current Comment: A couple / week Patient Tobacco Use Status: Never used Tobacco Smoked in Last 30 Days: No Use of substances other than those prescribed or required for medical reasons: No Advance Directives: No Advance Directives Information Provided: Yes Meds Allergies Allergy/AdvReac Type Severity Reaction Status Date / Time No Known Allergies (NKA) Allergy Mild NOT Verified 08/12/24 07:54 APPLICABLE Home Medications ?Medication ?Instructions ?Recorded ?Confirmed ?Last Taken ?Type amlodipine 2.5 mg tablet 2.5 mg PO DAILY 10/24/2208/12/24 History Physical Exam 2 Vital Signs: Vital Signs: Last Vital Signs Temp 97.8 F 08/12/24 11:00 Pulse 71 08/12/24 11:00 Resp 16 08/12/24 11:00 BP 132/78 08/12/24 11:00 Pulse Ox 96 08/12/24 11:00 O2 Del Method Room Air 08/12/24 11:00 O2 Flow Rate 2 08/12/24 09:43 BMI result Body Mass Index 30.9 Const: General: comfortable and no acute distress O rientation/consciousness: patient oriented x3 HEENT: Other: Unremarkable Head: Yes normal to inspection Neck: Neck: Yes normal visual inspection Chest: Chest palpation & inspection: normal inspection of the chest Resp: Auscultation: clear to auscultation bilaterally Cardio: Palpation: normal PMI Heart sounds: S1 normal heart sound present, S2 normal heart sound present, no gallops, no murmurs and no rubs GI: Palpation (GI): Soft to palpation Back/Spine/Pelvis: Other: unremarkable Skin: General skin exam: no rashes or lesions noted Neuro: General: patient oriented x3 Extrem: General: Yes normal to inspection Psych: Mental Status: mental status grossly normal Objective Labs and Meds 08/12/24 08:01 08/12/24 08:01 Lab results: Laboratory Results - last 24 hr 08/12/24 08/12/24 08:00 08:01 WBC 7.7 RBC 4.78 Hgb 14.5 Hct 40.0 MCV 83.7 MCH 30.3 MCHC 36.3 H RDW 12.5 Plt Count 202 MPV 11.2 Immature Gran % (Auto) 0.4 Neut % (Auto) 69.9 Lymph % (Auto) 23.0 [place] % (Auto) 5.2 Eos % (Auto) 1.2 Baso % (Auto) 0.3 Lymph # (Auto) 1.8 [place] # (Auto) 0.4 Eos # (Auto) 0.1 Baso # (Auto) 0.0 Abs Immat Gran (auto) 0.03 Absolute Neuts (auto) 5.4 Absolute Nucleated RBC 0.000 Nucleated RBC % (auto) 0.0 Sodium 141 Potassium 3.9 Chloride 106 Carbon Dioxide 26 Anion Gap 13 BUN 8 L Creatinine 0.67 Estim Creat Clear Calc 114.0 Estimated GFR > 60 Random Glucose 98 Calcium 9.9 Total Bilirubin 0.7 AST 32 H ALT 28 Alkaline Phosphatase 123 H Troponin I High Sens < 2.7 Total Protein 7.9 Albumin 4.8 TSH 1.66 Beta HCG, Quant < 2 ECG Interpretation: In the initial EKG which is not in the EMR, narrow complex tachycardia at 156/Min. Not clear if it is atrial tachycardia or flutter. In the subsequent EKGs, sinus rhythm with runs of PACs. In the last EKG, sinus rhythm. Assessment and Plan (1) Atrial arrhythmia: Status: Acute (2) Tachycardia: Status: Acute Plan Based on the EKG, difficult to say if it is atrial flutter or atrial tachycardia. Could be either. Normal high sensitivity troponin. Seems resolved at this time with beta-blockers. May continue that for the time being. Obtain echocardiogram/Holter as an outpatient. Based on the findings, consider EP referral. To be decided. Plan discussed with patient. We will arrange follow-up. Procedures Date of Service Date of Service: 08/12/24
== END 2024-08-12 12:07 | disposition home or self-care (01) ==
PROVIDERS: Emergency Provider Emergency Medicine; PCP Internal Medicine
DX: I47.10 Supraventricular tachycardia, unspecified (principal); R00.2 Palpitations; R10.2 Pelvic and perineal pain; Z79.899 Other long term (current) drug therapy
CPT/HCPCS: 36415; 80053; 84443; 84484; 84702; 85025; 93005; 99283; 99285

== ENCOUNTER → 2024-08-12 08:09 | Outpatient (BNV) | payer OTHER, SELFPAY | PROVIDERS: Emergency Provider Emergency Medicine; PCP Internal Medicine; Visit Provider Internal Medicine | DX: I49.8 Other specified cardiac arrhythmias (principal); R00.0 Tachycardia, unspecified | CPT/HCPCS: 99285 ==

== ENCOUNTER 2024-08-16 15:29 | Outpatient (AMB) | payer OTHER, SELFPAY ==
[2024-08-16 14:20] VITALS: BP 126/74; PULSE 68; TEMP 36.3; O2SAT 99; BMI 31.5
--- NOTE | 2024-08-16 14:20 | MHC.PC.OV ---
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: No Accompanied by: Self / Same As Patient Allergies No Known Allergies (NKA) Allergy (Mild, Verified 08/16/24 20:20) NOT APPLICABLE Medication List - Last Reconciled 08/16/24 by Eric Buckner MD levothyroxine 88 mcg PO DAILY metoprolol tartrate 25 mg PO DAILY Tobacco use date assessed: 08/16/24 Dental Screening Dental Screen Date: 08/16/24 Did you have a dental visit in the last 12 months?: Yes Did you have a dental problem in the last 6 months where you did not have access to dental care?: No HPI ED F/U HPI Details 48-year-old female presents to the office after a recent visit to the emergency room. Patient was scheduled for a routine colonoscopy. In the endoscopy room she had a run of supraventricular tachycardia. Patient had symptoms of palpitation without any diaphoresis, shortness of breath, nausea or vomiting. Patient underwent blood work and a repeat EKG. She was found to be in sinus rhythm and discharged home on metoprolol. Patient here for a follow-up visit. Reports no symptoms or palpitations since discharge. Patient does not consume alcohol. [facility] Medical History HTN (hypertension) Hypothyroid Surgical History H/O section Family History Mother Atrial fibrillation Father No problems noted. Social History Housing: Apartment Alcohol intake: current Comment: A couple / week Patient Tobacco Use Status: Never used Tobacco e-Cigarette/Vaping Use: Never Used service: No Current occupational status: employed Cognitive needs: No Hearing needs: No Vision needs: Yes (reading glasses) Questionnaire PHQ-9 Over the last 2 weeks, how often have you been bothered by any of the following problems? 1. Little interest or pleasure in doing things: not at all 2. Feeling down, depressed, or hopeless: not at all 3. Trouble falling or staying asleep, or sleeping too much: not at all 4. Feeling tired or having little energy: not at all 5. Poor appetite or overeating: not at all 6. Feeling bad about yourself - or that you are a failure or have let yourself or your family down: not at all 7. Trouble concentrating on things, such as reading the newspaper or watching television: not at all 8. Moving or speaking so slowly that other people could have noticed. Or the opposite - being so fidgety or restless that you have been moving around a lot more than usual: not at all 9. Thoughts that you would be better off or of hurting yourself in some way: not at all Total score: 0 Source: Developed by Drs. Sam Mats, Sarita Montgomery, Ronni Benoit and colleagues, with an educational brigid from [employer]. Thrive Questionnaire Date Thrive assessed: 08/16/24 I am a: Patient Within the past 12 months, did the food you bought not last and you didn't have the money to get more?: Never true Within the past 12 months, did you worry whether your food would run out before you got money to buy more?: Never true Do you have trouble paying for medicines?: No Do you have trouble getting transportation to medical appointments?: No Do you have trouble paying your heating and electricity bill?: No Do you have trouble taking care of your child, family member or friend?: No Do you have trouble with day-to-day activities such as bathing, preparing meals, shopping, managing finances, etc.?: No Are you currently unemployed and looking for a job?: No Are you interested in more education?: No THRIVE Score: 0 AUDIT C Alcohol Use Questionnaire (AUDIT-C) 1. How often do you have a drink containing alcohol?: Monthly or less 2. How many drinks containing alcohol do you have on a typical day when you are drinking?: 1 or 2 3. How often do you have six or more drinks on one occasion?: Less than monthly Total Score: 2 RUBI-7 AMB Questionnaire RUBI-7 Date RUBI - 7 assessed: 08/16/24 Feeling nervous, anxious, or on edge: 0 = Not at all Not being able to stop or control worryin = Not at all Worrying too much about different things: 0 = Not at all Trouble relaxin = Not at all Being so restless that it is hard to sit still: 0 = Not at all Becoming easily annoyed or irritable: 0 = Not at all Feeling afraid as if something awful might happen: 0 = Not at all Total RUBI-7 score (0-4 normal; 5-9 mild; 10-14 moderate; 15-21 severe): 0 Source: Developed by Drs. Sam Mast, Sarita Montgomery, Ronni Benoit and colleagues, with an educational brigid from [employer]. Physical exam (Primary Care) Vital Signs: Last Vital Signs Temp 97.4 F 08/16/24 14:20 Pulse 68 08/16/24 14:20 BP 126/74 08/16/24 14:20 Pulse Ox 99 08/16/24 14:20 Oxygen Delivery Method Room Air 08/16/24 14:20 Care Plan Goal for BP management: Blood pressure is in range. BMI result Body Mass Index 31.5 BMI Assessment/Plan discussion: High Tobacco/Smoking Status: Tobacco use Status Tobacco use date assessed 08/16/24 08/16/24 14:22 Patient Tobacco Use Status Never used Tobacco 08/16/24 14:22 e-Cigarette/Vaping Use Never Used 08/16/24 14:22 PHQ-9: PHQ-9 Score PHQ-9: Total score 0 08/16/24 15:55 Thrive Assessment: Date of Thrive Assessment Date Thrive assessed 08/16/24 08/16/24 14:22 Const General: cooperative and healthy appearing Nutritional Appearance: well nourished Orientation/consciousness: patient oriented x3 Limitations: no limitations HENMT Head: Yes normal to inspection Eyes General: appearance normal, both eyes and all related structures Neck Neck: Yes normal visual inspection Chest Chest palpation & inspection: normal palpation of entire chest wall Resp Effort & Inspection: normal respiratory effort Neuro General: patient oriented x3 Coding Level of Care Code New Pt Level 4 (30892) Complex EM visit Add On G2211 Diagnoses Supraventricular tachycardia I47.10 Assessment & Plan Assessment & Plan (1) Supraventricular tachycardia: Code(s): I47.10 - Supraventricular tachycardia, unspecified Plan: EKG reviewed. 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 She will get a stress test and a possible echocardiogram. In lieu of the colonoscopy, a Cologuard has been ordered. Continue metoprolol at same dosage. Orders: Referrals Cologuard Test Z12.11 - Encounter for screening for malignant neoplasm of colon
--- OUTSIDE RECORDS SUMMARY | 2024-08-16 15:39 | XMS_ITS | Data Portability ---
Author Organization [facility], [address] Address [address] [place] [address] Assessment No assessment recorded. Plan of Treatment Reminders Order Date Submit Date Provider Last Modified By Organization Details Last Modified Time Details Appointments None recorded. Lab SARS CoV 2 (COVID-19) Ag, QL, [place], upper respiratory specimen 2022 023 [email or web address] [address], [address] [place], [address], 18:01:26 Referral None recorded. Procedures None recorded. Surgeries None recorded. Imaging None recorded. Medication Orders amoxicillin 875 mg-potassiu m clavulanate 125 mg tablet 2022 023 [email or web address] [id number], [address] [place], [address], 15:49:06 Patient TargetsNo targets recorded. Patient Instructions Encounter Date Encounter Id Patient Instructions Last Modified By Organization Details Last Modified Time 01/22/2023 [id number] ear infection (otitis media): care instructions [email or web address] Not available 01/22/2023 18:01:25 Reason for Referral None Reported. Results Created Date Observation Date Name Description Value Unit Range Abnormal Flag Note LastModifiedBy Organization Detail LastModifiedTime 01/23/20 23 01/22/2023 SARS CoV 2 (COVI D-19) Ag, QL, [place], upper respi rator y speci men Unknown Analyte negati ve Not Available [email or web address] [place], [address], 01/22/2023 17:35:10 01/23/20 23 01/22/2023 SARS CoV 2 (COVI D-19) Ag, QL, IA, upper respi rator y speci men Unknown Analyte yes Not Available [email or web address] [place], [address], 01/22/2023 17:35:10 Result Notes None recorded. Problems Name Problem SNOMED Code Status Onset Date Resolution Date Notes Provider Name and Address Organization Details Recorded Time Hypertensive disorder 16069568 Active Noemy fagan PA - [facility] 17:33:22 Hypothyroidism 97659680 Active Noemy fagan PA - [facility] 17:33:35 Problem Notes None recorded. [...] Updated DateTime 3 167.64 cm 30.7 kg/m2 17928.5 5 g 98.5 [degF] 16 /min 98 % 98 % 92 /min 130 mm[Hg] 87 mm[Hg] Noemy RANGEL - [facility] 17:37:16 Social History Question Answer Notes LastModified by Organizat ion Details LastModified Time Tobacco Smoking Status Never Smoker Noemy fagan PA - [facility] 01/22/2023 17:34:19 Have You Had A Flu Shot This Season? No [email or web address] Information not available 01/22/2023 What Was The Date Of Your Most Recent Tobacco Screening? 01/22/2023 [email or web address] Information not available 01/22/2023 Have You Recently Traveled Abroad? No [email or web address] Information not available 01/22/2023 Sex: Unknown Functional Status Question Answer Note LastModified by Organizat ion Details LastModified Time Do you use any illicit or recreational drugs? No [email or web address] Information not available 01/22/2023 Do you or have you ever used any other forms of tobacco or nicotine? No [email or web address] Information not available 01/22/2023 What is your level of alcohol consumption? Occasional [email or web address] Information not available 01/22/2023 Mental Status None recorded. Family History Relationship [...] SNOMED-CT Code Diagnosis ICD10 Code Diagnosis Note [id number] [address] [place] [address] 07/06/2018 15:23:20 07/06/2018 15:56:35 [id number] [address] [place] [address] 10/17/2017 09:03:49 10/17/2017 09:40:04 [id number] [address] [place] [address] 06/08/2020 13:37:12 06/08/2020 14:37:45 [id number] [address] [place] [address] 02/25/2019 17:47:20 02/25/2019 18:52:31 [id number] [address] [place] [address] 06/04/2016 15:08:13 06/04/2016 16:05:27 [id number] [address] [place] [address] 10/05/2018 15:35:06 10/05/2018 16:06:23 [id number] [address] [place] [address] 03/11/2019 15:46:03 03/11/2019 16:26:07 [id number] [address] [place] [address] 11/03/2015 09:31:46 11/03/2015 10:49:03 [id number] [place] [address] [facility] [address] [place] [address] 01/22/2023 17:06:30 01/22/2023 18:03:16 Acute right otitis media [id number] H66.91 An ear infection may start with [...] of antibiotic s. Upper resp iratory infection [id number] J06.9 Health Concerns Section Related Observation LastModified by Organization Hailey garcia LastModified Time None Recorded Concern Status LastModified by Organization Details LastModified Time None Recorded Advance Directives Directive None Recorded Payers Insurance Date Sequence Insurance Name Policy Number Policy Dorsey Covered Member ID Dorsey Member ID Guarantor Name 02/09/[address] [place] [address] [id number] Taurus Torres [id number] Taurus Torres Notes Date Note Type Note [...] pressure x 2 weeks Lizzie Patricia NP [address] [place], [address], [place] - [facility] 02/09/2023 15:52:12 OBGyn Episode No OBEpisode recorded.
--- OUTSIDE RECORDS SUMMARY | 2024-08-16 15:39 | XMS_ITS | Clinical Summary ---
Author Organization [facility] Address [address] [place] [address] Care Team Providers Care Customer Experience Specialist Name Role Phone Robert Cooper MD Primary Care Provider [phone] Surgical History Surgery Date Site/Laterality Comments SECTION [...] Upcoming Encounters Date Type Department Care Team ([facility] st Contact Info) Description 11/16/2024 4:00 PM EDT Appointment Radiology Department [address] [place] [address] Health Maintenance Due Date Last Done Comments DTaP,Tdap,and Td Vaccines (1 - Tdap) 11/03/1994 Hepatitis B Vaccines (1 of 3 - 19+ 3-dose series) 11/03/1994 Cholesterol Screening (Lipid Panel) 01/27/2022 Colorectal Cancer Screening: Colonoscopy 01/27/2022 Depression Screening 01/27/2022 HIV Screening 01/27/2022 Hepatitis C Screening 01/27/2022 Hypertension/CHF/CAD Annual BMP Blood Test 01/27/2022 Social Influencers of Health Screening 01/27/2022 COVID-19 Vaccine ( season) 2023 Cervical Cancer Screening: Pap Smear 04/11/2024 04/11/2021 Influenza Vaccine (Season Ended) 2024 Breast Cancer Screening 11/03/2025 11/04/19 24, 2023, [...] composed of fatty and fibroglandular tissue. No suspicious mass, architectural distortion or suspicious calcifications are identified. IMPRESSION: : No mammographic evidence of malignancy. BIRADS 1-Negative; N. Breast density: The breasts have scattered areas of fibroglandular density. 5 year breast cancer risk assessment 1.8 % Lifetime breast cancer risk assessment 17.8 % Breast cancer risk category Moderate (15% - 20%) Location: [facility], [address] [place] [address], [address], [phone] Procedure Note Xochilt Todd MD - 01/12/2024 [...] risk category Moderate (15% - 20%) Location: [facility], [address] [place], [place] [address], [address], [phone] Maggie Gómez CNM IMG XR PROCEDURES Final Result * Pap smear (04/11/2021) 04/11/2021 Narrative HISTORICAL TESTING LAB RESULTING AGENCY - 04/23/2021 2:31 PM EST [id number] THINPREP PAP: NEGATIVE FOR SQUAMOUS INTRAEPITHELIAL LESION AND MALIGNANCY . NOTE: THE PAP TEST IS A SCREENING TEST WITH AN INHERENT FALSE NEGATIVE RATE. AUTOMATED PRESCREENING OF ALL LIQUID BASED SPECIMENS IS PERFORMED BY THE THINPREP IMAGING SYSTEM UNLESS OTHERWISE STATED. KYLE EDMOND(ASCP) (CASE ELECTRONICALLY SIGNED 04 23 2021) RESULT OF APTIMA HIGH RISK HPV ASSAY: HIGH RISK HPV: NEGATIVE (SEROTYPES 16,18,31,33,35,39,45,51,52,56,58,59,66,68) COMPLETED ON 2021-04-13 ADEQUACY: SATISFACTORY ENDOCERVICAL/TRANSFORMATION ZONE COMPONENT PRESENT. SOURCE: THINPREP PAP HPV ANY DX: REFLEX 16 AND 18, CERVICAL, IMAGED CLINICAL INFORMATION: HPV ANY DIAGNOSIS. PAP HX NEGATIVE, [Z12.4, Z01.419]. Maggie Gómez CNM LAB CYTOLOGY ORDERABLES Final R esult HISTORICAL TESTING LAB RESULTING AGENCY from Last 3 Months or Most Recently Relevant to Health Maintenance Care Teams Customer Experience Specialist Relationship Specialty Start Date End Date Robert Cooper MD [address] [place] [address] Dr Jericho [place] PCP - General Internal Medicine 09/14/15
== END 2024-08-16 16:08 | disposition home or self-care (01) ==
LOC: HO.HMCHD 15:30
PROVIDERS: PCP Internal Medicine; Visit Provider Internal Medicine
DX: I47.10 Supraventricular tachycardia, unspecified (principal)

== ENCOUNTER → 2024-08-16 15:29 | Outpatient (BNVA) | payer OTHER, SELFPAY | PROVIDERS: PCP Internal Medicine; Visit Provider Internal Medicine | DX: Z13.89 Encounter for screening for other disorder (principal) ==

== ENCOUNTER → 2024-09-17 09:01 | Outpatient (REF) | payer OTHER, SELFPAY ==
--- NOTE | 2024-09-17 09:05 | CA_ITS ---
Transthoracic Echocardiogram Patient (Last, First, Middle): Taurus Torres, Gender: Female Date of : 1975 Age: 48 Procedure Date: 09/17/2024 Procedure Type: Transthoracic Echocardiogram Location: OP Height: 167.64 cm Weight: 88.45 kg BSA: 1.98 m2 Heart Rate: bpm BP: 124 / 80 mmHg Call Center Dispatcher: SADA Referring MD: Warren Salazar MD Office Clerk: Joao Pearson MD Symptoms: I49.8 - Other specified cardiac arrhythmias Study Quality: Fair ECG Rhythm: Sinus Conclusions: - Essentially normal study Findings Left Ventricle Normal left ventricular size, thickness, and systolic function. The visually estimated ejection fraction is between 60-65%. Spectral Doppler is indicative of a normal filling pattern. Right Ventricle Normal right ventricular cavity size and systolic function. Atria The left atrium is normal in size. There is no evidence of interatrial shunt. The right atrium is normal in size. Aortic Valve The aortic valve structure and function is likely normal. There is no aortic valve stenosis. There is no aortic valve regurgitation. Mitral Valve Normal mitral valve structure and function. There is trace mitral valve regurgitation. There is no mitral valve stenosis. Pulmonic Valve The pulmonic valve is likely normal. Tricuspid Valve Normal tricuspid valve structure. There is trace tricuspid valve regurgitation. The right ventricular systolic pressure is normal. The right ventricular systolic pressure is 19 mmHg. Normal right atrial pressure. There is no evidence of pulmonary hypertension. Great Vessels All visible segments of the aorta are normal in size. The pulmonary artery was not well visualized. Venous The inferior vena cava is normal in size and collapses greater than 50% with inspiration. Pericardium/Pleural There is no evidence of pericardial effusion. Prior Study Comparison No prior study available for comparison. Measurements 2D Linear Measurements IVSd: 0.93 0.6-0.9/0.6-1.0 cm LVIDd: 4.63 3.9-5.3/4.2-5.9 cm LVIDd Index: 2.34 2.4-3.2/2.2-3.1 cm/m2 LVIDs: 2.96 2.0-3.6 cm LVPWd: 0.95 0.7-1.1 cm Ao Root: 2.70 2.1-3.5 cm LA Diam: 3.20 2.7-3.8/3.0-4.0 cm LAIDs Index: 1.62 1.5-2.3 cm/m2 LV Mass: 183.58 67-162/88-224 g LV Mass Index: 92.71 43-95/49-115 g/m2 LVOT Diam: 2.10 3.0+(-)1.3 cm 2D Systolic Function EF 4C: 60.00 >55% EF 2C: 60.70 >55% EF BiP: 60.20 >55% Mitral Valve MV Pk E: 0.79 MV PK A: 0.60 MV Decel Time: 243.00 E/A: 1.30 E'Lateral: 15.40 E'Medial: 8.81 E/E' Med: 8.90 E/E' Lat: 5.10 PHT: 71.00 MVA PHT: 3.10 Decel Randolph: 3.24 Aortic Valve AoV Pk Faraz: 1.56 AoV Mn Faraz: 0.96 AoV VTI: 0.36 AoV Pk Grad: 10.00 Aov Mn Grad: 5.00 LAURA Cont.VTI: 2.25 LVOT LVOT Pk Faraz: 1.12 LVOT Mn Faraz: 0.71 LVOT VTI: 0.23 LVOT Pk Grad: 5.00 LVOT Mn Grad: 2.00 LVOT Diam: 2.10 LVOT Area: 3.46 Diastolic Function MV Pk E: 0.79 MV Pk A: 0.60 E/A: 1.30 E'Medial: 8.81 E/E' Med: 8.90 E' Laterial: 15.40 E/E' Lat: 5.10 Right Ventricle TAPSE (mm): 31.00 TVS' Faraz: 13.00 Tricuspid Valve TR Pk Faraz: 1.93 TR Pk Grad: 15.00 RA Press: 3.00 RVSP: 19.00 Great Vessels Aorta Ao Root-2D: 2.70 2.0-3.7 cm Ao Asc: 3.00 2.1-3.4 cm Pulmonary Valve PV Pk Faraz: 1.15 Peak PV Grad: 5.00 Updated in Other Vendor System with Status of Final Joao Pearson MD electronically signed on 09/17/2024 2:59:34 PM with status of Final
--- NOTE | 2024-09-17 09:05 | HM_ITS ---
Conclusion: 1. Patient was monitored for total period of 7 days 2. Baseline rhythm was normal sinus rhythm with average heart of 70 beats per minute 3. Frequent PACs noted with total burden of 5% with frequent runs of supraventricular tachycardia, longest lasting 50 seconds at 215 beats per minute 4. No significant pauses noted 5. 1 3 beat agatha of nonsustained VT at 133 beats per minute 6. Patient marked the counter 3 times, 2 of the times symptoms correlated right after an episode of SVT with symptoms of head pineda and flutters MTDD
--- OUTSIDE RECORDS SUMMARY | 2024-09-17 09:17 | XMS_ITS | Clinical Summary ---
Author Organization [facility] Address [address] [place] [address] Care Team Providers Care Correction Lieutenant Name Role Phone Robert Cooper MD Primary Care Provider [phone] Surgical History Surgery Date Site/Laterality Comments SECTION [...] Upcoming Encounters Date Type Department Care Team ([facility] st Contact Info) Description 11/16/2024 4:00 PM EDT Appointment Radiology Department [address] [place] [address] Health Maintenance Due Date Last Done Comments DTaP,Tdap,and Td Vaccines (1 - Tdap) 11/03/1994 Hepatitis B Vaccines (1 of 3 - 19+ 3-dose series) 11/03/1994 Cholesterol Screening (Lipid Panel) 01/27/2022 Colorectal Cancer Screening: Colonoscopy 01/27/2022 HIV Screening 01/27/2022 Hepatitis C Screening 01/27/2022 Hypertension/CHF/CAD Annual BMP Blood Test 01/27/2022 Social Influencers of Health Screening 01/27/2022 COVID-19 Vaccine ( season) 2023 Depression Screening 02/18/2024 Cervical Cancer Screening: Pap Smear 04/11/2024 04/11/2021 Influenza Vaccine (#1) 2024 Breast Cancer Screening 11/03/2025 11/04/19 24, [...] 5 Years) and At-Risk Patients (6 to 49 Years) Aged Out No longer eligible based [...] risk category Moderate (15% - 20%) Location: [facility], [address] [place] [address], [address], [phone] Procedure Note Xochilt Todd MD - 01/12/2024 [...] risk category Moderate (15% - 20%) Location: [facility], [address] [place], [place] [address], [address], [phone] Maggie Gómez CNM IMG XR PROCEDURES Final Result * Pap smear (04/11/2021) 04/11/2021 Narrative HISTORICAL TESTING LAB RESULTING AGENCY - 04/23/2021 2:31 PM EST [id number] THINPREP PAP: NEGATIVE FOR SQUAMOUS INTRAEPITHELIAL LESION [...] Recently Relevant to Health Maintenance Care Teams Correction Lieutenant Relationship Specialty Start Date End Date Robert Cooper MD [address] [place] [address] Dr Jericho [place] PCP - General Internal Medicine 09/14/15
--- OUTSIDE RECORDS SUMMARY | 2024-09-17 09:17 | XMS_ITS | Encounter Summary ---
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 11/2016 Does patient have an upcoming [...] the end of the day? NO Payor: [employer] / Plan: HMO $20 [place] / Product Type: HMO [id number] documented in this encounter Plan of Treatment Not on file documented as of this encounter Visit Diagnoses Not on filedocumented in this encounter Care Teams Supervisor Drying Relationship Specialty Start Date End Date Robert Cooper MD PCP - General Internal Medicine 09/14/15 documented as of this encounter
== END ==
LOC: HO.CARD 09:01
PROVIDERS: PCP Internal Medicine; Visit Provider Internal Medicine
DX: I49.8 Other specified cardiac arrhythmias (principal); R00.2 Palpitations
CPT/HCPCS: 93242; 93306

== ENCOUNTER → 2024-09-17 09:05 | Outpatient (BNV) | payer OTHER, SELFPAY | PROVIDERS: PCP Internal Medicine; Visit Provider Internal Medicine Cardiovascular Disease | DX: I49.8 Other specified cardiac arrhythmias (principal) | CPT/HCPCS: 93306 ==

== ENCOUNTER 2024-10-05 13:21 | Outpatient (AMB) | payer OTHER, SELFPAY ==
--- NOTE | 2024-10-05 13:37 | A.OFFVIS_ITS ---
Vital Signs 10/05/24 13:39 Height 5 ft 6 in Weight 192 lb 10.944 oz BMI 31.1 BP 110/64 Blood Pressure Location Lt brachial Position Sitting Pulse 86 Pulse Source Pulse Oximeter Intake Visit Reasons: c f/up holter echo Intake Note: c/ holter-echo Protein Chemist Required: No Accompanied by: Self / Same As Patient Allergies No Known Allergies (NKA) Allergy (Mild, Verified 08/16/24 20:20) NOT APPLICABLE Medication List - Last Reconciled 10/05/24 by Gio Hall NP levothyroxine 88 mcg PO DAILY metoprolol tartrate 25 mg PO DAILY HPI Comments Details: This is a 48-year-old female patient coming in for a hospital discharge follow- up. Patient states that she has a history of palpitations for which her PCP started her on amlodipine however with the recent hospital visit for tachycar jarrod, patient was switched to metoprolol. Patient was in the hospital for routine colonoscopy when she was noted to have SVT and was sent to the ER. However EKG showed sinus tachycardia with questionable flutter versus atrial tach. Patient converted to sinus rhythm with metoprolol. Subsequently, patient underwent outpatient echocardiogram and a Holter study. Today, patient reports infrequent palpitations and associated with this patient has some feelings of head pineda'. Patient states that she had some of these symptoms while wearing the Holter and has marked it. Holter pending at this time. Patient is otherwise denying any associated symptoms of exertional chest pain, shortness of breath, dizziness, orthopnea, PND, leg edema, presyncope, or syncope. Patient is reporting compliance with her medications. [facility] Medical History HTN (hypertension) Hypothyroid Surgical History H/O section Family History Mother Atrial fibrillation Father No problems noted. Social History Housing: Apartment Alcohol intake: current Comment: A couple / week Patient Tobacco Use Status: Never used Tobacco e-Cigarette/Vaping Use: Never Used service: No Current occupational status: employed Cognitive needs: No Hearing needs: No Vision needs: Yes (reading glasses) Review of Systems Const Denies chills, Denies fatigue, Denies fever(s), Denies frequent falls, Denies weakness, Denies weight gain and Denies weight loss ENT Denies dizziness Card Denies chest pain, Denies leg edema, Denies lightheadedness, Denies palpitations, Denies dyspnea and Denies dyspnea on exertion Resp Denies cough, Denies dyspnea and Denies dyspnea on exertion GI Denies hematochezia Musc Denies abnormal gait, Denies muscle weakness, Denies numbness, Denies radiating pain into limb and Denies tingling Neuro Denies abnormal gait, Denies dizziness, Denies frequent falls, Denies numbness, Denies tingling and Denies weakness Endo Denies fatigue and Denies palpitations Physical Exam Vital Signs: Last Vital Signs Pulse 86 10/05/24 13:39 BP 110/64 10/05/24 13:39 BMI result Body Mass Index 31.1 Const General: cooperative, healthy appearing, comfortable and no acute distress Orientation/consciousness: patient oriented x3 HEENT Head: Yes normal to inspection Neck Neck: Yes normal visual inspection, Yes trachea midline and Yes supple Chest Chest palpation & inspection: normal inspection of the chest Resp Effort & Inspection: normal respiratory effort Auscultation: clear to auscultation bilaterally, no crackles, no rales, no rhonchi and no wheezes Cardio Jugular venous distension: no JVD Palpation: normal PMI Rate: regular rate Rhythm: regular rhythm Heart sounds: S1 normal heart sound present, S2 normal heart sound present, no click, no gallops, no murmurs and no rubs Peripheral pulses: Peripheral pulses 2+ throughout GI Inspection: Yes normal to inspection Palpation (GI): Soft to palpation Auscultation: normal bowel sounds Skin General skin exam: no rashes or lesions noted Neuro General: patient oriented x3 Extrem General: Yes normal to inspection, No no pedal edema and No calf tenderness Psych Appearance: grossly normal Mental Status: mental status grossly normal Speech and movement: Normal speech and movement present Assessment & Plan Assessment & Plan (1) Atrial arrhythmia: Code(s): I49.8 - Other specified cardiac arrhythmias Category: Medical Plan: EKG is in the hospital difficult to interpret with questions of atrial flutter versus atrial tachycardia. Holter pending at this time. 09/17/2024-echo study showed normal LV systolic function with an ejection fraction between 60-65 %. Discussed in detail the different expected findings on the Holter and management for them. At this point, patient to continue with metoprolol therapy. Blood pressure within normal limits. (2) Hospital discharge follow-up: Code(s): Z09 - Encounter for follow-up examination after completed treatment for conditions other than malignant neoplasm Plan: As above. Advised heart healthy diet, regular exercise, losing weight, adequate hydration, and med compliance. Depending on the Holter findings, follow-up visit will be made. We will plan to call the results over the phone once received. Patient verbalizes understanding of the plan and agrees. This note was generated using voice recognition software. While every effort has been made to ensure accuracy and proper operations superintendent, there may be occasional errors that could affect the content or meaning of the described symptoms. Coding Level of Care Code Est Pt Level 4 (80754) Complex EM visit Add On G2211 Diagnoses Atrial arrhythmia I49.8 Hospital discharge follow-up Z09 Time Spent (min) 31 Comment Time spent in reviewing the chart, test results, assessment, counseling and documentation.
[2024-10-05 13:39] VITALS: BP 110/64; PULSE 86; BMI 31.1
--- OUTSIDE RECORDS SUMMARY | 2024-10-05 14:36 | XMS_ITS | Clinical Summary ---
Author Organization [facility] Address [address] [place] [address] Care Team Providers Care Coding Analyst Name Role Phone Robert Cooper MD Primary Care Provider [phone] Surgical History Surgery Date Site/Laterality Comments SECTION [...] Upcoming Encounters Date Type Department Care Team ([facility] st Contact Info) Description 11/16/2024 4:10 PM EDT Appointment Radiology Department [address] [place] [address] Health Maintenance Due Date Last Done Comments [...] risk category Moderate (15% - 20%) Location: [facility], [address] [place] [address], [address], [phone] Procedure Note Xochilt Todd MD - 01/12/2024 [...] risk category Moderate (15% - 20%) Location: [facility], [address] [place], [place] [address], [address], [phone] Maggie Gómez CNM IMG XR PROCEDURES Final Result * Pap smear (04/11/2021) 04/11/2021 Narrative HISTORICAL TESTING LAB RESULTING AGENCY - 04/23/2021 2:31 PM EST [id number] THINPREP PAP: NEGATIVE FOR SQUAMOUS INTRAEPITHELIAL LESION [...] Recently Relevant to Health Maintenance Care Teams Coding Analyst Relationship Specialty Start Date End Date Robert Cooper MD [address] [place] [address] Dr Jericho [place] PCP - General Internal Medicine 09/14/15
== END 2024-10-05 13:59 | disposition home or self-care (01) ==
LOC: HO.HCS 13:21
PROVIDERS: PCP Internal Medicine
DX: I49.8 Other specified cardiac arrhythmias (principal); Z09 Encounter for follow-up examination after completed treatment for conditions other than malignant neoplasm
CPT/HCPCS: 99214; G2211

== ENCOUNTER 2025-01-03 09:55 | Outpatient (AMB) | payer OTHER, SELFPAY ==
[2025-01-03 09:59] VITALS: BP 107/78; PULSE 74; RESP 14; TEMP 36.6; O2SAT 99; BMI 32.0
--- NOTE | 2025-01-03 09:59 | MHC.PC.OV ---
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 Social History Housing: Apartment Alcohol intake: current Comment: A couple / week Patient Tobacco Use Status: Never used Tobacco e-Cigarette/Vaping Use: Never Used service: No Current occupational status: employed Cognitive needs: No Hearing needs: No Vision needs: Yes (reading glasses) Questionnaire PHQ-9 Over the last 2 weeks, how often have you been bothered by any of the following problems? 1. Little interest or pleasure in doing things: not at all 2. Feeling down, depressed, or hopeless: not at all 3. Trouble falling or staying asleep, or sleeping too much: not at all 4. Feeling tired or having little energy: not at all 5. Poor appetite or overeating: not at all 6. Feeling bad about yourself - or that you are a failure or have let yourself or your family down: not at all 7. Trouble concentrating on things, such as reading the newspaper or watching television: not at all 8. Moving or speaking so slowly that other people could have noticed. Or the opposite - being so fidgety or restless that you have been moving around a lot more than usual: not at all 9. Thoughts that you would be better off or of hurting yourself in some way: not at all Total score: 0 Source: Developed by Drs. Sam Mast, Ronni Maravilla and colleagues, with an educational brigid from [email or web address]. Thrive Questionnaire Date Thrive assessed: 08/16/24 I am a: Patient Within the past 12 months, did the food you bought not last and you didn't have the money to get more?: Never true Within the past 12 months, did you worry whether your food would run out before you got money to buy more?: Never true Do you have trouble paying for medicines?: No Do you have trouble getting transportation to medical appointments?: No Do you have trouble paying your heating and electricity bill?: No Do you have trouble taking care of your child, family member or friend?: No Do you have trouble with day-to-day activities such as bathing, preparing meals, shopping, managing finances, etc.?: No Are you currently unemployed and looking for a job?: No Are you interested in more education?: No THRIVE Score: 0 AUDIT C Alcohol Use Questionnaire (AUDIT-C) 1. How often do you have a drink containing alcohol?: Monthly or less 2. How many drinks containing alcohol do you have on a typical day when you are drinking?: 1 or 2 3. How often do you have six or more drinks on one occasion?: Less than monthly Total Score: 2 RUBI-7 AMB Questionnaire RUBI-7 Date RUBI - 7 assessed: 08/16/24 Feeling nervous, anxious, or on edge: 0 = Not at all Not being able to stop or control worryin = Not at all Worrying too much about different things: 0 = Not at all Trouble relaxin = Not at all Being so restless that it is hard to sit still: 0 = Not at all Becoming easily annoyed or irritable: 0 = Not at all Feeling afraid as if something awful might happen: 0 = Not at all Total RUBI-7 score (0-4 normal; 5-9 mild; 10-14 moderate; 15-21 severe): 0 Source: Developed by Drs. Sam Mast, Ronni Maravilla and colleagues, with an educational brigid from [email or web address]. Physical exam (Primary Care) Vital Signs: Last Vital Signs Temp 97.9 F 01/03/25 09:59 Pulse 74 01/03/25 09:59 Resp 14 01/03/25 09:59 BP 107/78 01/03/25 09:59 Pulse Ox 99 01/03/25 09:59 Oxygen Delivery Method Room Air 01/03/25 09:59 BMI result Body Mass Index 32.0 Tobacco/Smoking Status: Tobacco use Status Tobacco use date assessed 08/16/24 01/03/25 10:05 Patient Tobacco Use Status Never used Tobacco 01/03/25 10:05 e-Cigarette/Vaping Use Never Used 01/03/25 10:05 PHQ-9: PHQ-9 Score PHQ-9: Total score 0 01/03/25 10:05 Thrive Assessment: Date of Thrive Assessment Date Thrive assessed 08/16/24 01/03/25 10:05 Office Procedures Flu Questionnaire Does the patient have a severe egg allergy?: No Does the patient have severe life threatening allergies?: No Does the patient have a fever or illness today?: No Has the patient ever had Guillain-Eighty Four Syndrome?: No Has the patient ever had any past reaction to a flu shot?: No Immunizations Fluarix [id number] (PF) 45 mcg (15 mcg x 3)/0.5 mL IM syringe Performing Provider: Eric Buckner MD [place] [facility] Administered by: CHERRY Johnson on 01/03/25 10:05 Dose Route Admin Location Dispensed Lot Number Expiration Date [facility] Operations Label Clerk 0.5 mL IM Left Deltoid 0.5 mL [id number] 08/16/25 [id number] [employer] VIS Given Date VIS Provided VIS Publication Date 01/03/25 Single Vaccine 24 Eligibility Eligibility Date Funding Source Not [facility] Eligible 01/03/25 Private Coding Level of Care Code Est Pt Level 4 (81360) Complex EM visit Add On G2211 Diagnoses SVT (supraventricular tachycardia) I47.10 Assessment & Plan Assessment & Plan (1) SVT (supraventricular tachycardia): Code(s): I47.10 - Supraventricular tachycardia, unspecified Category: Medical Plan: History of Present Illness - The patient is a 49-year-old female presenting for a follow-up visit for supraventricular tachycardia. - She was diagnosed with supraventricular tachycardia and was prescribed metoprolol 25 mg once daily in July. - An echocardiogram in September was unremarkable, showing a normal ejection fraction and no valve stenosis. - The patient also wore a Holter patch for one week, which showed a normal rhythm with some extra beats. - She had a visit with an retail furniture sales at [facility] on December 13, who prescribed flecainide. - The patient took only one dose of flecainide and experienced dizziness, so she discontinued the medication. - A cardiac ablation procedure has been discussed as an alternative to medication, and she is currently awaiting a call from the cardiology office to schedule it. - The patient is currently taking levothyroxine and metoprolol. - Health maintenance includes a negative Cologuard test in August, a normal mammogram in October, and a recent flu shot. - Her last thyroid blood work in July was within the normal range. 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 - Work Schedule: She works from home three days a week and is in the office two days a week. - Family: She has two teenage children, aged 14 and nearly 17. Review of Systems - General: Denies any health concerns. - Cardiovascular: Reports a history of supraventricular tachycardia. - Neurological: Reports an episode of dizziness after taking flecainide. Physical Exam General: Cooperative and healthy appearing Nutritional Appearance: Well nourished Orientation/consciousness: Patient oriented x3 Limitations: No limitations Head: Normal to inspection General: Appearance normal, both eyes and all related structures Neck: Normal visual inspection Chest: Normal palpation of entire chest wall Respiratory: Normal respiratory effort Neurology: Patient oriented x3 Results - Echocardiogram (September 17): Normal ejection fraction and no valve stenosis. - Holter monitor (September): Normal rhythm with some extra beats noted over a one-week monitoring period. - Cologuard test (August): Negative. - Mammogram (October): Normal. - Thyroid function test (July): Within normal range. Plan - The patient will follow up with her cardiology team regarding a potential cardiac ablation for supraventricular tachycardia. - She will continue taking levothyroxine and metoprolol as prescribed. - The patient should not take flecainide due to intolerance causing dizziness. - Repeat thyroid labs will be ordered in the spring, as no immediate blood work is needed at this time. - The patient will return for a follow-up appointment in six months. Discussion Notes I discussed her diagnosis of supraventricular tachycardia, noting that it is a benign condition. We reviewed her intolerance to flecainide, which caused dizziness, and discussed that a cardiac ablation is being considered by her retail furniture sales so she may not need medication. I advised her to follow up with the cardiology office, as she is expecting their call to discuss scheduling the procedure. We also reviewed her health maintenance status, confirming her Cologuard, mammogram, and flu shot are up to date. I informed her that no blood work is needed at this time and that we will recheck her thyroid levels in the spring. A follow-up visit in six months was recommended. Patient Instructions - Continue taking your metoprolol and levothyroxine medications as directed. - Do not take any more flecainide, as it caused you to feel dizzy. - Please follow up with the cardiology office about the potential heart procedure (ablation). - You do not need any blood tests today. We will check your thyroid levels in the spring. - Your preventative screenings, including your Cologuard test and mammogram, are up to date with normal results. - Please schedule a follow-up appointment to be seen here in six months. Orders: Orders Influenza [id number] Immunization Today Z23 - Encounter for immunization
== END 2025-01-03 11:02 | disposition home or self-care (01) ==
LOC: HO.HMCSH 09:55
PROVIDERS: PCP Internal Medicine; Visit Provider Internal Medicine
DX: I47.10 Supraventricular tachycardia, unspecified (principal); Z23 Encounter for immunization

== ENCOUNTER → 2025-01-03 09:55 | Outpatient (BNVA) | payer OTHER, SELFPAY | PROVIDERS: PCP Internal Medicine; Visit Provider Internal Medicine | DX: I47.10 Supraventricular tachycardia, unspecified (principal); Z23 Encounter for immunization | CPT/HCPCS: 90471; 90656; 96127 ==